=== PATIENT | female | born 1965 | race Caucasian/White ===

== ENCOUNTER 2016-06-23 19:21 | Inpatient (IN) | payer BC, MEDICAID, OTHER ==
[2016-06-23 20:32] LABS: % EOSINOPHILS 1.2 % (0.0-5.0); % LYMPHOCYTES 17.3 % (20.0-50.0); % MONOCYTES 6.4 % (2.0-10.0); % NEUTROPHILS 71.1 % (40.0-80.0); HEMATOCRIT 40.5 % (35.0-45.0); HEMOGLOBIN 13.7 gm/dL (11.7-15.5); MEAN CORPUSCULAR HEMOGLOBIN 29.7 pg (27.0-31.0); MEAN CORPUSCULAR HGB CONC 33.8 pg (28.0-36.0); MEAN PLATELET VOLUME 7.7 fl; NEUTROPHILE ABSOLUTE 11.3 Th/cmm (1.8-8.0); PLATELET COUNT 254 Th/cmm (150-400); RED CELL DISTRIBUTION WIDTH 13.1 % (11.5-20.0)
--- NOTE | 2016-06-23 20:35 | ED Physician Chart ---
Chief Complaint/HPI - Patient Information Date Seen:: 06/23/16 Time Seen:: 19:20 Chief Complaint:: rectal pain History of Present Illness:: 51-year-old female with acute on chronic, worsening, severe, 10 out of 10, aching, worse with bowel movement, left-sided rectal pain that became acutely worse over the past week but has been having symptoms for the past 6 months. Recently was seen by unknown physician who prescribed some unknown compounded cream which she has not tried to cream because is not ready at the compounding pharmacy. 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 Has some associated hematochezia for the past 5 weeks. Allergies:: Allergies Allergy/AdvReac Type Severity Reaction Status Date / Time Penicillins [PCN] Allergy Verified 06/23/16 19:56 Vitals:: Vital Signs - 8 hr 06/23/16 19:25 Temp 99.5 F HR 90 RR 18 BP 125/78 O2 Sat % 98 Historian:: Patient Review:: Nurse's Note Reviewed Review of Systems - Review of Systems Other: Complete system review otherwise unremarkable except as noted in history of present illness. Past Medical History - Past Medical History Past Medical History: HTN, DM, Dyslipidemia Family History: None Social History: Non Smoker, No Alcohol, No Drug Use, Employed Surgical History: None Psychiatricy History: None Medication: Reviewed Family Medical History - Family Member Mother History Unknown: Yes Ethnicity: Physical Exam - Physical Examination Other:: INITIAL VITAL SIGNS: Reviewed by me GENERAL: Alert and interactive. No acute distress HEAD: Head is normocephalic and atraumatic EYES: EOMI. PERRL. No scleral icterus. No conjunctival injection ENT: Moist mucous membranes. NECK: Supple. No masses. Full range of motion RESPIRATORY: No tachypnea. Clear breath sounds bilaterally. No wheezing, rales, or rhonchi CV: Regular rate and rhythm. No murmurs, rubs, or gallops ABDOMEN: Soft, non-distended, non-tender. No guarding. No rebound. No masses. EXTREMITIES: No deformity. No cyanosis. No edema. SKIN: Warm and dry. No obvious rashes. NEUROLOGIC: Alert and oriented. Face is symmetric. Speech is normal. Moves all extremities equally. Motor and sensory distally intact. RECTAL: RN Court Supervisor and Verbal Consent Obtained Sphincter tone is normal. Severe pain to palpation over the left sphincter area. There is an area of induration at about 7:00 which is deep painful. Consistent with rectal abscess and possibly fissure. There is a skin tag at the 6 o'clock position. No evidence of external hemorrhoids. No evidence of internal hemorrhoids. Labs/Radiology/EKG Results - Lab Results Results: Lab Results 06/23/16 06/23/16 Range/Units 20:15 20:15 WBC 15.9 H (4.8-10.8) Th/cmm RBC 4.60 (3.80-5.10) Mil/cmm Hgb 13.7 (11.7-15.5) gm/dL Hct 40.5 (35.0-45.0) % MCV 88.0 (81-100) fl MCH 29.7 (27.0-31.0) pg MCHC Differential 33.8 (28.0-36.0) pg RDW 13.1 (11.5-20.0) % Plt Count 254 (150-400) Th/cmm MPV 7.7 fl Neutrophils % 71.1 (40.0-80.0) % Lymphocytes % 17.3 L (20.0-50.0) % Monocytes % 6.4 (2.0-10.0) % Eosinophils % 1.2 (0.0-5.0) % Basophils % 4.0 H (0.0-2.0) % Sodium 136 (136-145) mEq/L Potassium 4.6 (3.5-5.1) mEq/L Chloride 103 (98-107) mEq/L Carbon Dioxide 29.8 (21.0-31.0) mEq/L Anion Gap 7.8 (7.0-16.0) BUN 13 (7-25) mg/dL Creatinine 0.6 (0.6-1.2) mg/dL Est GFR ( Amer) > 60.0 (>90) ml/min Est GFR (Non-Af Amer) > 60.0 ml/min BUN/Creatinine Ratio 21.7 Glucose 195 H (70-105) mg/dL Calcium 9.3 (8.6-10.3) mg/dL Total Bilirubin 0.3 (0.3-1.0) mg/dL AST 11 L (13-39) U/L ALT 12 (7-52) U/L Alkaline Phosphatase 70 (34-104) U/L Total Protein 7.5 (6.0-8.3) gm/dL Albumin 3.8 (3.7-5.3) gm/dL Globulin 3.7 gm/dL Albumin/Globulin Ratio 1.0 (1.0-1.8) ED Septic Shock - . Is Septic Shock (SBP<90, OR Lactate>4 mmol\L) present?: No - <6hrs of presentation: Vital Signs: Vital Signs - 8 hr 06/23/16 19:25 Temp 99.5 F HR 90 RR 18 BP 125/78 O2 Sat % 98 Reassessment (Disposition) - Reassessment Reassessment:: This patient has a rectal abscess. Concern for deep fissure. This has been worsening over the past 6 months. She has apparently seen a physician who prescribed a compounded cream but she has not been able to last picker the cream yet to try it. It is unknown what this compounded cream contains. He is currently not taking any antibiotics. Over the course of the 6 months she was taking Cipro for some time early on. Symptoms continued to worsen over this time. Patient has leukocytosis. She will likely need I&D and possible further exploration of the fistula to discover how far it has tracked. This is not a procedure that can be done in the emergency department. She did receive IV antibiotics here in the ER. Also IV fluids. Also intramuscular analgesics. Discussed with the admitting physician. Patient admitted for further workup and treatment. Reassessment Condition:: Improved - Diagnosis Diagnosis:: Acute rectal pain due to left-sided perirectal abscess with rectal fissure Diabetes mellitus type 2 Hypertension - Patient Disposition Discharge/Transfer:: Acute Care w/in this hosp Admitted to:: Med/Surg Admitting Medical Physician:: Jose J Avila Time:: 21:17 Condition at Disposition:: Improved
[2016-06-23 20:41] LABS: WHITE BLOOD COUNT 15.9 Th/cmm (4.8-10.8)
[2016-06-23 20:47] LABS: ALKALINE PHOSPHATASE 70 U/L (34-104); ANION GAP 7.8 (7.0-16.0); BILIRUBIN,TOTAL 0.3 mg/dL (0.3-1.0); BUN - UREA NITROGEN 13 mg/dL (7-25); BUN/CREATININE RATIO 21.7; CALCIUM SERUM 9.3 mg/dL (8.6-10.3); CARBON DIOXIDE 29.8 mEq/L (21.0-31.0); CHLORIDE 103 mEq/L (98-107); CREATININE - SERUM 0.6 mg/dL (0.6-1.2); GLUCOSE 195 mg/dL (70-105); POTASSIUM SERUM 4.6 mEq/L (3.5-5.1); SGOT 11 U/L (13-39); SGPT/ALT 12 U/L (7-52); SODIUM SERUM 136 mEq/L (136-145)
[2016-06-23] MEDS ORDERED: Sodium Chloride 0.9% 1,000 ML IV ONE (21:03)
[2016-06-23] MEDS ORDERED: Clindamycin 600mg/50mL 600 MG/50 ML BAG IV ONE (21:04)
[2016-06-23] MEDS ORDERED: Ciprofloxacin 400mg Premix PB 400 MG/200 ML BAG IV ONE ×2 (21:20→21:22)
[2016-06-23] MEDS ORDERED: metroNIDAZOLE 500mg/NS 100mL 500 MG/100 ML BAG IV ONE ×2 (21:20→22:00)
--- NOTE | 2016-06-23 22:23 | Admit Criteria Form ---
Admit Criteria Forms - Admit Criteria Diagnosis: PAIN MANAGEMENT GR Clinical Indications for Admission to Inpatient Care (Place 'X' for any and all applicable criteria): Hospital admission is needed for appropriate care of the patient because of 1 or more of the following are present (1)(2)(3)(4)(5): [X]I. Severe pain requiring acute inpatient management as indicated by 1 or more of the following (2)(5)(10): [X]a) Continuous or frequent (eg, every 2 to 4 hours) parenteral analgesics required [A] [ ]b) Necessity (ie, alternative approaches not effective) for analgesic regimen that can only be performed or initiated in inpatient setting [ ]II. Pain causing debilitation to the point of inability to function or be supported at any other level of care [ ]III. Severe side effects from pain medications as indicated by ANY ONE of the following (12)(13)(14)(15): [ ]a) Uncontrollable seizures [ ]b) Cardiac arrhythmias of immediate concern [ ]c) Dehydration that is severe or persistent [ ]d) Vomiting that is severe or persistent [ ]e) Altered mental status that is severe or persistent [ ]f) Obstipation with inadequate GI function to maintain nutrition The original [employer] content created by [employer] has been revised. The portions of the content which have been revised are identified through the use of italic text or in bold, and [email or web address] has neither reviewed nor approved the modified material. All other unmodified content is copyright [employer]. Please see references footnoted in the original [email or web address] 2016 Admit Criteria Met?: Yes
[2016-06-23] MEDS: INSULIN ASPART, RECOMBINANT 100 UNITS/ML SUBQ SCH (22:47)
[2016-06-23 22:48] LABS: URINE BILIRUBIN NEGATIVE (NEGATIVE); URINE COLOR YELLOW; URINE GLUCOSE (UA) NEGATIVE (NEGATIVE); URINE KETONE NEGATIVE (NEGATIVE)
[2016-06-23 22:49] LABS: URINE BLOOD NEGATIVE (NEGATIVE); URINE PH 6.5; URINE PROTEIN NEGATIVE (NEGATIVE); URINE UROBILINOGEN 0.2 E.U./dL (0.2 - 1.0)
[2016-06-23 23:00] LABS: URINE EPITHELIAL CELLS NONE SEEN /lpf (FEW); URINE RBC NONE SEEN /hpf (0-5); URINE WBC NONE SEEN /hpf (0-5)
[2016-06-23 23:01] LABS: URINE BACTERIA NONE SEEN /hpf (NONE SEEN)
[2016-06-23] MEDS: D5-0.45NS 1,000 ML IV SCH (23:42)
[2016-06-24] MEDS: metroNIDAZOLE 500mg/NS 100mL 500 MG/100 ML BAG IV SCH ×3 (05:46→20:34)
[2016-06-24] MEDS: INSULIN ASPART, RECOMBINANT 100 UNITS/ML SUBQ SCH ×4 (07:03→20:35)
[2016-06-24] MEDS ORDERED: Midazolam 1mg/ml 2 ml vial IV ONE (09:03)
[2016-06-24] MEDS ORDERED: Clindamycin 600mg/50mL 600 MG/50 ML BAG IV ONE (09:12)
--- NOTE | 2016-06-24 09:29 | General Progress Note ---
Subjective - Review of Systems Service Date: 06/24/16 Events since last encounter: operation: sigmoidoscopy, hemorrhoidectomy no fissure or fistula Objective - Results Result Diagrams: 06/23/16 20:15 06/23/16 20:15 Recent Labs: Laboratory Last Values WBC 15.9 Th/cmm (4.8-10.8) H 06/23/16 20:15 RBC 4.60 Mil/cmm (3.80-5.10) 06/23/16 20:15 Hgb 13.7 gm/dL (11.7-15.5) 06/23/16 20:15 Hct 40.5 % (35.0-45.0) 06/23/16 20:15 MCV 88.0 fl (81-100) 06/23/16 20:15 MCH 29.7 pg (27.0-31.0) 06/23/16 20:15 MCHC Differential 33.8 pg (28.0-36.0) 06/23/16 20:15 RDW 13.1 % (11.5-20.0) 06/23/16 20:15 Plt Count 254 Th/cmm (150-400) 06/23/16 20:15 MPV 7.7 fl 06/23/16 20:15 Neutrophils % 71.1 % (40.0-80.0) 06/23/16 20:15 Lymphocytes % 17.3 % (20.0-50.0) L 06/23/16 20:15 Monocytes % 6.4 % (2.0-10.0) 06/23/16 20:15 Eosinophils % 1.2 % (0.0-5.0) 06/23/16 20:15 Basophils % 4.0 % (0.0-2.0) H 06/23/16 20:15 Sodium 136 mEq/L (136-145) 06/23/16 20:15 Potassium 4.6 mEq/L (3.5-5.1) 06/23/16 20:15 Chloride 103 mEq/L (98-107) 06/23/16 20:15 Carbon Dioxide 29.8 mEq/L (21.0-31.0) 06/23/16 20:15 Anion Gap 7.8 (7.0-16.0) 06/23/16 20:15 BUN 13 mg/dL (7-25) 06/23/16 20:15 Creatinine 0.6 mg/dL (0.6-1.2) 06/23/16 20:15 Est GFR ( Amer) > 60.0 ml/min (>90) 06/23/16 20:15 Est GFR (Non-Af Amer) > 60.0 ml/min 06/23/16 20:15 BUN/Creatinine Ratio 21.7 06/23/16 20:15 Glucose 195 mg/dL (70-105) H 06/23/16 20:15 POC Glucose 139 MG/DL (70 - 105) H 06/24/16 06:56 Hemoglobin A1c % 6.3 % (4.0-6.0) H 06/23/16 20:15 Whole Bld Lactic Acid 1.06 mmol/L (0.60-1.99) 06/23/16 21:10 Calcium 9.3 mg/dL (8.6-10.3) 06/23/16 20:15 Total Bilirubin 0.3 mg/dL (0.3-1.0) 06/23/16 20:15 AST 11 U/L (13-39) L 06/23/16 20:15 ALT 12 U/L (7-52) 06/23/16 20:15 Alkaline Phosphatase 70 U/L (34-104) 06/23/16 20:15 Total Protein 7.5 gm/dL (6.0-8.3) 06/23/16 20:15 Albumin 3.8 gm/dL (3.7-5.3) 06/23/16 20:15 Globulin 3.7 gm/dL 06/23/16 20:15 Albumin/Globulin Ratio 1.0 (1.0-1.8) 06/23/16 20:15 Urine Source CLEAN CATCH 06/23/16 19:45 Urine Color YELLOW 06/23/16 19:45 Urine Clarity CLEAR (CLEAR) 06/23/16 19:45 Urine pH 6.5 06/23/16 19:45 Ur Specific [place] 1.020 (1.005-1.030) 06/23/16 19:45 Urine Protein NEGATIVE mg/dL (NEGATIVE) 06/23/16 19:45 Urine Glucose (UA) NEGATIVE mg/dL (NEGATIVE) 06/23/16 19:45 Urine Ketones NEGATIVE mg/dL (NEGATIVE) 06/23/16 19:45 Urine Blood NEGATIVE (NEGATIVE) 06/23/16 19:45 Urine Nitrate NEGATIVE (NEGATIVE) 06/23/16 19:45 Urine Bilirubin NEGATIVE (NEGATIVE) 06/23/16 19:45 Urine Urobilinogen 0.2 E.U./dL (0.2 - 1.0) 06/23/16 19:45 Ur Leukocyte Esterase NEGATIVE (NEGATIVE) 06/23/16 19:45 Urine RBC NONE SEEN /hpf (0-5) 06/23/16 19:45 Urine WBC NONE SEEN /hpf (0-5) 06/23/16 19:45 Ur Epithelial Cells NONE SEEN /lpf (FEW) 06/23/16 19:45 Urine Bacteria NONE SEEN /hpf (NONE SEEN) 06/23/16 19:45 Urine Test NEGATIVE 06/23/16 19:45 - Physical Exam Vitals and I&O: Vital Signs Temp 97.9 F 06/24/16 04:00 Pulse 84 06/24/16 08:51 Resp 18 06/24/16 04:00 BP 126/67 06/24/16 08:51 Pulse Ox 97 06/24/16 04:00 Active Medications: Current Medications Atenolol (Tenormin) 50 mg PO DAILY [facility] Stop: 08/23/16 08:59 Last Admin: 06/24/16 08:51 Dose: Not Given Dextrose/Sodium Chloride (D5-0.45ns) 1,000 mls @ 80 mls/hr IV .[id number] [facility] Stop: 08/22/16 21:59 Last Admin: 06/23/16 23:42 Dose: 80 mls/hr Levofloxacin (Levaquin Pb) 500 mg in 100 mls @ 100 mls/hr IV Q24HR [facility] Stop: 08/23/16 21:59 Metronidazole (Flagyl) 500 mg in 100 mls @ 100 mls/hr IV Q8HR [facility] Stop: 08/23/16 04:59 Last Admin: 06/24/16 05:46 Dose: 100 mls/hr Insulin Aspart (Novolog) 0 units SUBQ ACHS [facility] PRN Reason: Protocol Stop: 08/22/16 22:29 Last Admin: 06/24/16 07:03 Dose: Not Given Lisinopril (Zestril) 20 mg PO BID [facility] Stop: 08/23/16 08:59 Last Admin: 06/24/16 08:51 Dose: Not Given Morphine Sulfate (Morphine) 3 mg IVP Q3H PRN PRN Reason: Pain (Moderate) Stop: 08/22/16 22:14 Ondansetron HCl (Zofran) 4 mg IV Q6H PRN PRN Reason: Nausea / Vomiting Stop: 08/22/16 22:14 Simvastatin (Zocor) 10 mg PO [facility] Stop: 08/23/16 20:59 - Procedures Procedures: Procedures Procedure Code Date DESTRUC-SHOULDER LES NEC 80.81 11/08/01 EXC SHOULDER EDGARDO DEEP < 5 CM 07483 11/08/01
--- NOTE | 2016-06-24 12:00 | Consultation ---
DATE OF CONSULTATION: 06/24/2016 REFERRING PHYSICIAN: Dr. Avila. REASON FOR CONSULTATION: Rectal pain and bleeding. Thank you for referring this patient to me. HISTORY OF PRESENT ILLNESS: A 51-year-old obese diabetic female who comes in because of severe pain in the perirectal region. The patient claims she has been having some rectal bleeding continues for the past 1 week and on and off for the last one month. She claims however, that she has had pain in the anal region for the last 6 months on and off. PAST MEDICAL HISTORY: She had ovarian cyst removal. No other surgery. She is diabetic and takes oral medications. She is hypotensive. She is obese and weighs about 240 pounds. ALLERGIES TO MEDICATION: PENICILLIN. LABORATORY STUDIES: Showed WBC at 15,900. Chemistry, blood sugar was 195 and hemoglobin A1c 6.3. PHYSICAL EXAMINATION: GENERAL: The patient speaks Filipino and is alert and oriented. She is obese. ANAL EXAMINATION: Shows external hemorrhage, but is extremely tender and could not be examined. IMPRESSION: 1. Possible fissure. 2. External hemorrhoids, minimal. 3. Possible internal hemorrhoids. PLAN: We will examine under anesthesia, do sigmoidoscopy. Fissurectomy might be indicated. Hemorrhoidectomy is justifiable. Informed consent discussed with the patient regarding the possible complications and direct result of the procedure including pain for viable period of time, bleeding that might persist for a while and sphincterotome abnormality. The patient claims she understands these possible side effects and may have to undergo future treatments for the same condition. JOB# [id number]
[2016-06-24] MEDS: Morphine Sulfate 4 mg/mL 1mL Syr IVP PRN ×2 (13:51→20:06)
--- NOTE | 2016-06-24 14:16 | Infectious Disease Prog Note ---
Infectious Disease Subjective - Review of Systems Service Date: 06/24/16 Subjective: 800606 Infectious Disease Objective - Results Result Diagrams: 06/23/16 20:15 06/23/16 20:15 Recent Labs: Laboratory Last Values WBC 15.9 Th/cmm (4.8-10.8) H 06/23/16 20:15 RBC 4.60 Mil/cmm (3.80-5.10) 06/23/16 20:15 Hgb 13.7 gm/dL (11.7-15.5) 06/23/16 20:15 Hct 40.5 % (35.0-45.0) 06/23/16 20:15 MCV 88.0 fl (81-100) 06/23/16 20:15 MCH 29.7 pg (27.0-31.0) 06/23/16 20:15 MCHC Differential 33.8 pg (28.0-36.0) 06/23/16 20:15 RDW 13.1 % (11.5-20.0) 06/23/16 20:15 Plt Count 254 Th/cmm (150-400) 06/23/16 20:15 MPV 7.7 fl 06/23/16 20:15 Neutrophils % 71.1 % (40.0-80.0) 06/23/16 20:15 Lymphocytes % 17.3 % (20.0-50.0) L 06/23/16 20:15 Monocytes % 6.4 % (2.0-10.0) 06/23/16 20:15 Eosinophils % 1.2 % (0.0-5.0) 06/23/16 20:15 Basophils % 4.0 % (0.0-2.0) H 06/23/16 20:15 Sodium 136 mEq/L (136-145) 06/23/16 20:15 Potassium 4.6 mEq/L (3.5-5.1) 06/23/16 20:15 Chloride 103 mEq/L (98-107) 06/23/16 20:15 Carbon Dioxide 29.8 mEq/L (21.0-31.0) 06/23/16 20:15 Anion Gap 7.8 (7.0-16.0) 06/23/16 20:15 BUN 13 mg/dL (7-25) 06/23/16 20:15 Creatinine 0.6 mg/dL (0.6-1.2) 06/23/16 20:15 Est GFR ( Amer) > 60.0 ml/min (>90) 06/23/16 20:15 Est GFR (Non-Af Amer) > 60.0 ml/min 06/23/16 20:15 BUN/Creatinine Ratio 21.7 06/23/16 20:15 Glucose 195 mg/dL (70-105) H 06/23/16 20:15 POC Glucose 153 MG/DL (70 - 105) H 06/24/16 11:43 Hemoglobin A1c % 6.3 % (4.0-6.0) H 06/23/16 20:15 Whole Bld Lactic Acid 1.06 mmol/L (0.60-1.99) 06/23/16 21:10 Calcium 9.3 mg/dL (8.6-10.3) 06/23/16 20:15 Total Bilirubin 0.3 mg/dL (0.3-1.0) 06/23/16 20:15 AST 11 U/L (13-39) L 06/23/16 20:15 ALT 12 U/L (7-52) 06/23/16 20:15 Alkaline Phosphatase 70 U/L (34-104) 06/23/16 20:15 Total Protein 7.5 gm/dL (6.0-8.3) 06/23/16 20:15 Albumin 3.8 gm/dL (3.7-5.3) 06/23/16 20:15 Globulin 3.7 gm/dL 06/23/16 20:15 Albumin/Globulin Ratio 1.0 (1.0-1.8) 06/23/16 20:15 Urine Source CLEAN CATCH 06/23/16 19:45 Urine Color YELLOW 06/23/16 19:45 Urine Clarity CLEAR (CLEAR) 06/23/16 19:45 Urine pH 6.5 06/23/16 19:45 Ur Specific Stuart 1.020 (1.005-1.030) 06/23/16 19:45 Urine Protein NEGATIVE mg/dL (NEGATIVE) 06/23/16 19:45 Urine Glucose (UA) NEGATIVE mg/dL (NEGATIVE) 06/23/16 19:45 Urine Ketones NEGATIVE mg/dL (NEGATIVE) 06/23/16 19:45 Urine Blood NEGATIVE (NEGATIVE) 06/23/16 19:45 Urine Nitrate NEGATIVE (NEGATIVE) 06/23/16 19:45 Urine Bilirubin NEGATIVE (NEGATIVE) 06/23/16 19:45 Urine Urobilinogen 0.2 E.U./dL (0.2 - 1.0) 06/23/16 19:45 Ur Leukocyte Esterase NEGATIVE (NEGATIVE) 06/23/16 19:45 Urine RBC NONE SEEN /hpf (0-5) 06/23/16 19:45 Urine WBC NONE SEEN /hpf (0-5) 06/23/16 19:45 Ur Epithelial Cells NONE SEEN /lpf (FEW) 06/23/16 19:45 Urine Bacteria NONE SEEN /hpf (NONE SEEN) 06/23/16 19:45 Urine Test NEGATIVE 06/23/16 19:45 - Physical Exam Vitals and I&O: Vital Signs Temp 98.1 F 06/24/16 08:00 Pulse 84 06/24/16 08:51 Resp 18 06/24/16 08:00 BP 126/67 06/24/16 08:51 Pulse Ox 97 06/24/16 08:00 Intake & Output 06/23/16 06/24/16 06/24/16 18:59 06:59 18:59 Intake Total 100 Balance 100 Intake: Intake, IV Amount 100 metroNIDAZOLE 500mg/NS 100 100mL 500 mg In 100 ml @ 100 mls/hr IV Q8HR [facility] Rx #:[id number] Active Medications: Current Medications Atenolol (Tenormin) 50 mg PO DAILY [facility] Stop: 08/23/16 08:59 Last Admin: 06/24/16 08:51 Dose: Not Given Dextrose/Sodium Chloride (D5-0.45ns) 1,000 mls @ 80 mls/hr IV .[id number] [facility] Stop: 08/22/16 21:59 Last Admin: 06/23/16 23:42 Dose: 80 mls/hr Levofloxacin (Levaquin Pb) 500 mg in 100 mls @ 100 mls/hr IV Q24HR [facility] Stop: 08/23/16 21:59 Metronidazole (Flagyl) 500 mg in 100 mls @ 100 mls/hr IV Q8HR [facility] Stop: 08/23/16 04:59 Last Admin: 06/24/16 13:51 Dose: 100 mls/hr Insulin Aspart (Novolog) 0 units SUBQ ACHS [facility] PRN Reason: Protocol Stop: 08/22/16 22:29 Last Admin: 06/24/16 13:42 Dose: Not Given Lisinopril (Zestril) 20 mg PO BID [facility] Stop: 08/23/16 08:59 Last Admin: 06/24/16 08:51 Dose: Not Given Morphine Sulfate (Morphine) 3 mg IVP Q3H PRN PRN Reason: Pain (Moderate) Stop: 08/22/16 22:14 Last Admin: 06/24/16 13:51 Dose: 3 mg Ondansetron HCl (Zofran) 4 mg IV Q6H PRN PRN Reason: Nausea / Vomiting Stop: 08/22/16 22:14 Simvastatin (Zocor) 10 mg PO HS [facility] Stop: 08/23/16 20:59 - Procedures Procedures: Procedures Procedure Code Date DESTRUC-SHOULDER LES NEC 80.81 11/08/01 EXC SHOULDER EDGARDO DEEP < 5 CM [id number] 11/08/01
--- NOTE | 2016-06-24 15:17 | Operative Report ---
DATE OF SURGERY: 06/24/2016 PREOPERATIVE DIAGNOSES: 1. Rectal bleeding and pain. 2. Obesity. 3. Diabetes mellitus. 4. Hypertension. POSTOPERATIVE DIAGNOSES: 1. Rectal bleeding and pain. 2. Obesity. 3. Diabetes mellitus. 4. Hypertension. 5. External hemorrhoids. OPERATION DONE: 1. Sigmoidoscopy. 2. External hemorrhoidectomy. SURGEON: Sherrill Geronimo M.D. ANESTHESIA: Spinal. ANESTHESIOLOGIST: Tammy Dior M.D. ESTIMATED BLOOD LOSS: None. OPERATIVE FINDINGS: The patient has poor prep for the sigmoidoscopy, but no internal hemorrhoids were noted. No anal fissure was noted. No anorectal fistula. There was a prominent external hemorrhoid at 7 o'clock location, which was removed. DESCRIPTION OF PROCEDURE: The patient was given spinal anesthesia and was placed in the dorsal lithotomy position. Diagnostic laparoscopy was done, but the patient had not been prepared for this and therefore had stools in the rectum. However, following removal of stool, no internal hemorrhoids were noted. No mass was noted within 10 cm of the scope introduction. The sphincters were dilated. No fissure was noted. No fistula was noted. There was a prominent external hemorrhoid at the 7 o'clock location and this was excised. The skin was approximated utilizing running suture of 3-0 chromic catgut. Then, 0.5% Marcaine was infiltrated into the excision site. The patient tolerated the procedure well. JOB# [id number]
[2016-06-24] MEDS: D5-0.45NS 1,000 ML IV SCH (17:58)
--- NOTE | 2016-06-24 19:28 | History & Physical ---
ADMIT DATE: 06/24/2016 CHIEF COMPLAINT: Rectal area pain. HISTORY OF PRESENT ILLNESS: This is a 51-year-old female with history of diabetes, hypertension, and obesity who was brought in to Emergency Room to see the rectal area pain for the past few days. The patient was evaluated in the Emergency Room, diagnosed with possible perirectal abscess, has been admitted to the hospital for treatment. This morning, the patient was evaluated by Surgery. The patient underwent a sigmoidoscopy and external hemorrhoidectomy. Surgical consultation an operative report reviewed. The patient says she is feeling better. By history, the patient says she has been having this rectal pain problem for the past few months off and on and also rectal bleeding. The patient says that she went to see colorectal surgeon and was told that she might have fissure, but the patient has not had any surgical interventions in the past few months. She denies any fever, no chills, no nausea, no vomiting, no abdominal pain, no chest pain, no shortness of breath, no dizziness, no palpitation complaints. Family was at the bedside. PAST MEDICAL HISTORY: Hypertension and diabetes. PAST SURGICAL HISTORY: No significant past surgical history reported. SOCIAL HISTORY: Lives at home. Denies any alcohol or tobacco. CURRENT MEDICATIONS: Currently on Tylenol, atenolol, Levaquin, Flagyl, Zestril, morphine, Zofran, and simvastatin. ALLERGIES: ALLERGIC TO PENICILLIN. REVIEW OF SYSTEMS: As per HPI. Twelve-point systems appear negative. PHYSICAL EXAMINATION: VITAL SIGNS: Temperature 98.5, pulse 80, respiration 18, and blood pressure 135/48. HEART: S1 and S2 normal. LUNGS: Clear to auscultation bilaterally. ABDOMEN: Soft and nontender. NEUROLOGIC: The patient is alert, awake, moves all extremities, no focal deficits noted. SKIN: Perirectal wound clean. ASSESSMENT: 1. Perirectal pain, better. 2. External hemorrhoids status post hemorrhoidectomy. 3. Hypertension. 4. Hyperlipidemia. 5. Diabetes. 6. Obesity. PLAN: The case was discussed with General Surgery. No evidence of any fissure or fistula or any abscess per General Surgery operative report. The case was discussed with ID. Continue on antibiotics at this point. Local wound care will be given. Monitor blood sugars and monitor vitals. Adequate pain control will be given. Discussed with the patient and family at bedside regarding the patient's condition and plan of care. [facility]# [id number]
[2016-06-24] MEDS ORDERED: Levofloxacin 500mg/100mL 500 MG/100 ML BAG IV SCH (22:00)
[2016-06-25] MEDS: Morphine Sulfate 4 mg/mL 1mL Syr IVP PRN ×4 (00:02→16:26)
[2016-06-25] MEDS: metroNIDAZOLE 500mg/NS 100mL 500 MG/100 ML BAG IV SCH ×2 (05:09→13:21)
[2016-06-25 05:46] LABS: % BASOPHILS 2.4 % (0.0-2.0); % EOSINOPHILS 0.7 % (0.0-5.0); % LYMPHOCYTES 11.6 % (20.0-50.0); % MONOCYTES 6.4 % (2.0-10.0); % NEUTROPHILS 78.9 % (40.0-80.0); HEMATOCRIT 37.4 % (35.0-45.0); HEMOGLOBIN 12.5 gm/dL (11.7-15.5); MEAN CELL VOLUME 87.8 fl (81-100); MEAN CORPUSCULAR HEMOGLOBIN 29.4 pg (27.0-31.0); MEAN CORPUSCULAR HGB CONC 33.5 pg (28.0-36.0); MEAN PLATELET VOLUME 7.8 fl; NEUTROPHILE ABSOLUTE 11.9 Th/cmm (1.8-8.0); PLATELET COUNT 220 Th/cmm (150-400); RED BLOOD COUNT 4.25 Mil/cmm (3.80-5.10); RED CELL DISTRIBUTION WIDTH 12.8 % (11.5-20.0)
[2016-06-25 05:53] LABS: WHITE BLOOD COUNT 15.2 Th/cmm (4.8-10.8)
--- NOTE | 2016-06-25 05:53 | Consultation ---
DATE OF CONSULTATION: 06/24/2016 INFECTIOUS DISEASE CONSULTATION REASON FOR CONSULTATION: Rectal fistula and perirectal abscess. HISTORY OF PRESENT ILLNESS: This is a 51-year-old female with past medical history of diabetes mellitus, hypertension, and dyslipidemia, who was following her primary care physician for her constipation and rectal pain during defecation. She was followed by colorectal surgeon and was told that she has developed fistula and probably abscess. So, she came to the ER for further evaluation and management. On initial evaluation, the patient's temperature was 99.5 degrees Fahrenheit and WBC count was 15,900. ID consult was called for further antibiotic management. Meanwhile, the patient is already started on Levaquin and Flagyl. PAST MEDICAL HISTORY: Includes diabetes mellitus, hypertension, and dyslipidemia. ALLERGIES: THE PATIENT IS ALLERGIC TO PENICILLIN. MEDICATIONS: As per medication reconciliation sheet. Antibiotic nixon, the patient is on Levaquin and Flagyl. SOCIAL HISTORY: Lives at home. Denies any smoking, alcohol, or drug use. PAST SURGICAL HISTORY: Nonsignificant. PSYCHIATRIC HISTORY: None. FAMILY HISTORY: Nonsignificant. REVIEW OF SYSTEMS: GENERAL: The patient has no fever, no chills. HEENT: No diplopia, no photophobia, and no sore throat. RESPIRATORY: No cough and no shortness of breath. CVS: No chest pain and no palpitation. No leg swelling. GASTROINTESTINAL: The patient has no nausea, no vomiting, no diarrhea, and no constipation. The patient has bleeding per rectum, mild. GENITOURINARY: The patient also has tenesmus, pain on defecation. CENTRAL NERVOUS SYSTEM: No headache. No dizziness. No focal weakness. PHYSICAL EXAMINATION: VITAL SIGNS: Shows temperature is 98.1, pulse 84, respirations 17, and blood pressure 126/67. GENERAL: The patient is comfortable lying in the bed, not in acute distress. HEENT: Head is normocephalic and atraumatic. Oral cavity moist, pink tongue. Eyes: No pallor, no icterus. PERRLA. EOMI. NECK: Supple, no JVD, and no carotid bruit. Trachea in midline. CHEST: Bilateral breath sounds. No crackles or wheezing. CARDIOVASCULAR: S1 and S2 within normal limit. Regular rhythm. No murmur and no gallop. ABDOMEN: Soft, nontender, and nondistended. Bowel sounds are present. EXTREMITIES: No cyanosis, no clubbing, and no edema. NEUROLOGIC: Alert, awake, and oriented x 3. LABORATORY DATA: Current lab shows WBC count is 15,900, hemoglobin 13.7, hematocrit 40.5, and platelets are 254,000, neutrophils 71%. Sodium is 136, potassium 4.6, chloride 103, bicarbonate is 29.8, BUN is 13, creatinine 0.6, and glucose is 195. Urinalysis shows negative nitrite and negative leukoesterase. IMPRESSION: 1. 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 2. Diabetes mellitus type 2. 3. Hypertension. 4. Hyperlipidemia. 5. Leukocytosis. RECOMMENDATIONS: Continue Levaquin and Flagyl for 2 weeks. Follow up with colorectal surgeon and primary care physician for further care. Thank you, Dr. Avila, for involving me in taking care of this patient. JOB# [id number]
[2016-06-25 06:04] LABS: ANION GAP 7.9 (7.0-16.0); BUN - UREA NITROGEN 5 mg/dL (7-25); CALCIUM SERUM 8.8 mg/dL (8.6-10.3); CARBON DIOXIDE 27.1 mEq/L (21.0-31.0); CHLORIDE 108 mEq/L (98-107); CREATININE - SERUM 0.5 mg/dL (0.6-1.2); GLUCOSE 176 mg/dL (70-105); SODIUM SERUM 139 mEq/L (136-145)
[2016-06-25] MEDS: INSULIN ASPART, RECOMBINANT 100 UNITS/ML SUBQ SCH ×3 (06:38→17:07)
[2016-06-25] MEDS ORDERED: HYDROmorphone 2 mg/mL 1mL Vial IVP PRN (07:51)
--- NOTE | 2016-06-25 10:25 | Pathology Report ---
[id number] Collection date: 06/24/2016 Surgeon: Dr. Robert Mccartney Specimen Description: External hemorrhoids Gross Description: Received in formalin is a 1.2 x 1.0 x 0.8 cm portion of nunez-chong wrinkled skin. Sectioning shows no focal lesions. Truckload Checker sections are submitted in one cassette. Microscopic Description: The histologic sections show skin / anal mucosa with dilated blood vessels identified consistent with hemorrhoids. Diagnosis: Dilated blood vessels consistent with external hemorrhoids. [facility]# [id number] [facility]
--- NOTE | 2016-06-25 12:15 | General Progress Note ---
Subjective - Review of Systems Service Date: 06/25/16 Events since last encounter: only procedure done was sigmoidoscopy and excision of small skin tag patient should be prescribed Nupercainal oint/suppository for a week to minimize pain hot sitz bath will be helpful Objective - Results Result Diagrams: 06/25/16 05:26 06/25/16 05:26 Recent Labs: Laboratory Last Values WBC 15.2 Th/cmm (4.8-10.8) H 06/25/16 05:26 RBC 4.25 Mil/cmm (3.80-5.10) 06/25/16 05:26 Hgb 12.5 gm/dL (11.7-15.5) 06/25/16 05:26 Hct 37.4 % (35.0-45.0) 06/25/16 05:26 MCV 87.8 fl (81-100) 06/25/16 05:26 MCH 29.4 pg (27.0-31.0) 06/25/16 05:26 MCHC Differential 33.5 pg (28.0-36.0) 06/25/16 05:26 RDW 12.8 % (11.5-20.0) 06/25/16 05:26 Plt Count 220 Th/cmm (150-400) 06/25/16 05:26 MPV 7.8 fl 06/25/16 05:26 Neutrophils % 78.9 % (40.0-80.0) 06/25/16 05:26 Lymphocytes % 11.6 % (20.0-50.0) L 06/25/16 05:26 Monocytes % 6.4 % (2.0-10.0) 06/25/16 05:26 Eosinophils % 0.7 % (0.0-5.0) 06/25/16 05:26 Basophils % 2.4 % (0.0-2.0) H 06/25/16 05:26 Sodium 139 mEq/L (136-145) 06/25/16 05:26 Potassium 4.0 mEq/L (3.5-5.1) 06/25/16 05:26 Chloride 108 mEq/L (98-107) H 06/25/16 05:26 Carbon Dioxide 27.1 mEq/L (21.0-31.0) 06/25/16 05:26 Anion Gap 7.9 (7.0-16.0) 06/25/16 05:26 BUN 5 mg/dL (7-25) L 06/25/16 05:26 Creatinine 0.5 mg/dL (0.6-1.2) L 06/25/16 05:26 Est GFR ( Amer) > 60.0 ml/min (>90) 06/25/16 05:26 Est GFR (Non-Af Amer) > 60.0 ml/min 06/25/16 05:26 BUN/Creatinine Ratio 10.0 06/25/16 05:26 Glucose 176 mg/dL (70-105) H 06/25/16 05:26 POC Glucose 146 MG/DL (70 - 105) H 06/25/16 11:30 Hemoglobin A1c % 6.3 % (4.0-6.0) H 06/23/16 20:15 Whole Bld Lactic Acid 1.06 mmol/L (0.60-1.99) 06/23/16 21:10 Calcium 8.8 mg/dL (8.6-10.3) 06/25/16 05:26 Total Bilirubin 0.3 mg/dL (0.3-1.0) 06/23/16 20:15 AST 11 U/L (13-39) L 06/23/16 20:15 ALT 12 U/L (7-52) 06/23/16 20:15 Alkaline Phosphatase 70 U/L (34-104) 06/23/16 20:15 Total Protein 7.5 gm/dL (6.0-8.3) 06/23/16 20:15 Albumin 3.8 gm/dL (3.7-5.3) 06/23/16 20:15 Globulin 3.7 gm/dL 06/23/16 20:15 Albumin/Globulin Ratio 1.0 (1.0-1.8) 06/23/16 20:15 Urine Source CLEAN CATCH 06/23/16 19:45 Urine Color YELLOW 06/23/16 19:45 Urine Clarity CLEAR (CLEAR) 06/23/16 19:45 Urine pH 6.5 06/23/16 19:45 Ur Specific [place] 1.020 (1.005-1.030) 06/23/16 19:45 Urine Protein NEGATIVE mg/dL (NEGATIVE) 06/23/16 19:45 Urine Glucose (UA) NEGATIVE mg/dL (NEGATIVE) 06/23/16 19:45 Urine Ketones NEGATIVE mg/dL (NEGATIVE) 06/23/16 19:45 Urine Blood NEGATIVE (NEGATIVE) 06/23/16 19:45 Urine Nitrate NEGATIVE (NEGATIVE) 06/23/16 19:45 Urine Bilirubin NEGATIVE (NEGATIVE) 06/23/16 19:45 Urine Urobilinogen 0.2 E.U./dL (0.2 - 1.0) 06/23/16 19:45 Ur Leukocyte Esterase NEGATIVE (NEGATIVE) 06/23/16 19:45 Urine RBC NONE SEEN /hpf (0-5) 06/23/16 19:45 Urine WBC NONE SEEN /hpf (0-5) 06/23/16 19:45 Ur Epithelial Cells NONE SEEN /lpf (FEW) 06/23/16 19:45 Urine Bacteria NONE SEEN /hpf (NONE SEEN) 06/23/16 19:45 Urine Test NEGATIVE 06/23/16 19:45 - Physical Exam Vitals and I&O: Vital Signs Temp 96.8 F 06/25/16 08:00 Pulse 73 06/25/16 08:20 Resp 18 06/25/16 08:00 BP 130/70 06/25/16 08:20 Pulse Ox 99 06/25/16 08:00 Intake & Output 06/24/16 06/25/16 06/25/16 18:59 06:59 18:59 Intake Total 1982.333 680 Balance 1982.333 680 Intake: Intake, IV Amount 1133.333 200 D5-0.45NS 1,000 ml @ 80 1033.333 mls/hr IV .[id number] [facility] Rx #:[id number] Levofloxacin 500mg/100mL 100 500 mg In 100 ml @ 100 mls/hr IV Q24HR [facility] Rx#: [id number] metroNIDAZOLE 500mg/NS 100 100 100mL 500 mg In 100 ml @ 100 mls/hr IV Q8HR [facility] Rx #:[id number] Oral 850 480 Other: # Voids 3 4 # Bowel Movements 0 Active Medications: Current Medications Acetaminophen (Tylenol) 650 mg PO Q4HR PRN PRN Reason: Fever > 101 Stop: 08/23/16 14:07 Last Admin: 06/25/16 11:26 Dose: 650 mg Atenolol (Tenormin) 50 mg PO DAILY [facility] Stop: 08/23/16 08:59 Last Admin: 06/25/16 08:20 Dose: 50 mg Hydromorphone HCl (Dilaudid) 2 mg IVP Q4HR PRN PRN Reason: Severe Pain Stop: 08/24/16 07:50 Last Admin: 06/25/16 08:20 Dose: 2 mg Dextrose/Sodium Chloride (D5-0.45ns) 1,000 mls @ 80 mls/hr IV .[id number] [facility] Stop: 08/22/16 21:59 Last Infusion: 06/24/16 18:23 Dose: 80 mls/hr Levofloxacin (Levaquin Pb) 500 mg in 100 mls @ 100 mls/hr IV Q24HR [facility] Stop: 08/23/16 21:59 Last Infusion: 06/24/16 22:43 Dose: Infused Metronidazole (Flagyl) 500 mg in 100 mls @ 100 mls/hr IV Q8HR [facility] Stop: 08/23/16 04:59 Last Admin: 06/25/16 05:09 Dose: 100 mls/hr Insulin Aspart (Novolog) 0 units SUBQ ACHS [facility] PRN Reason: Protocol Stop: 08/22/16 22:29 Last Admin: 06/25/16 11:31 Dose: Not Given Lisinopril (Zestril) 20 mg PO BID [facility] Stop: 08/23/16 08:59 Last Admin: 06/25/16 08:20 Dose: 20 mg Morphine Sulfate (Morphine) 3 mg IVP Q3H PRN PRN Reason: Pain (Moderate) Stop: 08/22/16 22:14 Last Admin: 06/25/16 06:06 Dose: 3 mg Ondansetron HCl (Zofran) 4 mg IV Q6H PRN PRN Reason: Nausea / Vomiting Stop: 08/22/16 22:14 Simvastatin (Zocor) 10 mg PO HS [facility] Stop: 08/23/16 20:59 Last Admin: 06/24/16 20:35 Dose: 10 mg - Procedures Procedures: Procedures Procedure Code Date DESTRUC-SHOULDER LES NEC 80.81 11/08/01 EXC SHOULDER EDGARDO DEEP < 5 CM [address]17 11/08/01 Nutritional Asmnt/Malnutr-PDOC - Dietary Evaluation Malnutrition Findings (Please click <Entered> for more info): Nutritional Asmnt/Malnutrition Start: 06/24/16 14: 54 Text: Status: Complete Freq: Document 06/24/16 14:54 GSUN (Rec: 06/24/16 15:17 [email or web address] [email or web address]) Nutritional Asmnt/Malnutrition Patient General Information Nutritional Screening High Risk Screening Diagnosis Reason for visit: kim-rectal abscess Pertinent Medical Hx/Surgical Hx ER: DM, HTN Subjective Information 51 year old female from home, ractal pain and bloody stool. 4 AM operation: hemorrhoidectomy, sigmoidoscopy, no fissure or fistula. Per RN notes, diet advancement as tolerated. Observed clear liquid tray in front of pt. Pt was awake with family at bedside. RD mentioned blood sugar being high, pt appeared confused, will provide DM edu during follow up. Denied recnet weight changes. Current Diet Order/ Nutrition Support Clear liquid Pertinent Medications D5, Morphine, Zofran Pertinent Labs 06/23: A1c 6.3H, glucose 195H Nutritional Hx/Data Height 1.6 m Height (Calculated Centimeters) 160.0 Current Weight (lbs) 99.79 kg Weight (Calculated Kilograms) 99.8 Weight (Calculated Grams) 54447.3 Usual body Weight (lbs) 227 [place] Body Weight 115 GI Symptoms Food Allergies No Skin Integrity/Comment: Aaron 20. Operation around kim-rectal area, otherwise skin intact. Estimated Nutritional Goals BEE in Kcals: Adj wt of IBW Calories/Kcals/Kg AdjBW 141lb/64.2kg Kcals Calculated 1605-1926kcal (25-30kcal/kg) Protein: Adj wt of IBW Protein Calculated 51-64g (0.8-1g/kg) Fluid: ml 1605-1926ml (1ml/kcal) Nutritional Problem 1. Problem Problem Altered nutrition related laboratory values related to Etiology DM aeb Signs/Symptoms: A1c 6.3, glucose 195 on adm Intervention/Recommendation Comments 1. Diet advancement per MD as pt tolerates. Discussed advancement options with pt. 2. Recomend [id number] to promote glycemic control. 3. Provide DM edu during follow up. Expected Outcomes/Goals Expected Outcomes/Goals 1. PO intake to meet at least 75% of estimated nutritional needs.
--- NOTE | 2016-06-25 12:50 | Infectious Disease Prog Note ---
Infectious Disease Subjective - Review of Systems Service Date: 06/25/16 Subjective: no new change. Infectious Disease Objective - Results Result Diagrams: 06/25/16 05:26 06/25/16 05:26 Recent Labs: Laboratory Last Values WBC 15.2 Th/cmm (4.8-10.8) H 06/25/16 05:26 RBC 4.25 Mil/cmm (3.80-5.10) 06/25/16 05:26 Hgb 12.5 gm/dL (11.7-15.5) 06/25/16 05:26 Hct 37.4 % (35.0-45.0) 06/25/16 05:26 MCV 87.8 fl (81-100) 06/25/16 05:26 MCH 29.4 pg (27.0-31.0) 06/25/16 05:26 MCHC Differential 33.5 pg (28.0-36.0) 06/25/16 05:26 RDW 12.8 % (11.5-20.0) 06/25/16 05:26 Plt Count 220 Th/cmm (150-400) 06/25/16 05:26 MPV 7.8 fl 06/25/16 05:26 Neutrophils % 78.9 % (40.0-80.0) 06/25/16 05:26 Lymphocytes % 11.6 % (20.0-50.0) L 06/25/16 05:26 Monocytes % 6.4 % (2.0-10.0) 06/25/16 05:26 Eosinophils % 0.7 % (0.0-5.0) 06/25/16 05:26 Basophils % 2.4 % (0.0-2.0) H 06/25/16 05:26 Sodium 139 mEq/L (136-145) 06/25/16 05:26 Potassium 4.0 mEq/L (3.5-5.1) 06/25/16 05:26 Chloride 108 mEq/L (98-107) H 06/25/16 05:26 Carbon Dioxide 27.1 mEq/L (21.0-31.0) 06/25/16 05:26 Anion Gap 7.9 (7.0-16.0) 06/25/16 05:26 BUN 5 mg/dL (7-25) L 06/25/16 05:26 Creatinine 0.5 mg/dL (0.6-1.2) L 06/25/16 05:26 Est GFR ( Amer) > 60.0 ml/min (>90) 06/25/16 05:26 Est GFR (Non-Af Amer) > 60.0 ml/min 06/25/16 05:26 BUN/Creatinine Ratio 10.0 06/25/16 05:26 Glucose 176 mg/dL (70-105) H 06/25/16 05:26 POC Glucose 146 MG/DL (70 - 105) H 06/25/16 11:30 Hemoglobin A1c % 6.3 % (4.0-6.0) H 06/23/16 20:15 Whole Bld Lactic Acid 1.06 mmol/L (0.60-1.99) 06/23/16 21:10 Calcium 8.8 mg/dL (8.6-10.3) 06/25/16 05:26 Total Bilirubin 0.3 mg/dL (0.3-1.0) 06/23/16 20:15 AST 11 U/L (13-39) L 06/23/16 20:15 ALT 12 U/L (7-52) 06/23/16 20:15 Alkaline Phosphatase 70 U/L (34-104) 06/23/16 20:15 Total Protein 7.5 gm/dL (6.0-8.3) 06/23/16 20:15 Albumin 3.8 gm/dL (3.7-5.3) 06/23/16 20:15 Globulin 3.7 gm/dL 06/23/16 20:15 Albumin/Globulin Ratio 1.0 (1.0-1.8) 06/23/16 20:15 Urine Source CLEAN CATCH 06/23/16 19:45 Urine Color YELLOW 06/23/16 19:45 Urine Clarity CLEAR (CLEAR) 06/23/16 19:45 Urine pH 6.5 06/23/16 19:45 Ur Specific [place] 1.020 (1.005-1.030) 06/23/16 19:45 Urine Protein NEGATIVE mg/dL (NEGATIVE) 06/23/16 19:45 Urine Glucose (UA) NEGATIVE mg/dL (NEGATIVE) 06/23/16 19:45 Urine Ketones NEGATIVE mg/dL (NEGATIVE) 06/23/16 19:45 Urine Blood NEGATIVE (NEGATIVE) 06/23/16 19:45 Urine Nitrate NEGATIVE (NEGATIVE) 06/23/16 19:45 Urine Bilirubin NEGATIVE (NEGATIVE) 06/23/16 19:45 Urine Urobilinogen 0.2 E.U./dL (0.2 - 1.0) 06/23/16 19:45 Ur Leukocyte Esterase NEGATIVE (NEGATIVE) 06/23/16 19:45 Urine RBC NONE SEEN /hpf (0-5) 06/23/16 19:45 Urine WBC NONE SEEN /hpf (0-5) 06/23/16 19:45 Ur Epithelial Cells NONE SEEN /lpf (FEW) 06/23/16 19:45 Urine Bacteria NONE SEEN /hpf (NONE SEEN) 06/23/16 19:45 Urine Test NEGATIVE 06/23/16 19:45 - Physical Exam Vitals and I&O: Vital Signs Temp 97.9 F 06/25/16 12:00 Pulse 73 06/25/16 12:00 Resp 18 06/25/16 12:00 BP 125/59 06/25/16 12:00 Pulse Ox 96 06/25/16 12:00 Intake & Output 06/24/16 06/25/16 06/25/16 18:59 06:59 18:59 Intake Total 1982.333 680 Balance 1982.333 680 Intake: Intake, IV Amount 1133.333 200 D5-0.45NS 1,000 ml @ 80 1033.333 mls/hr IV .[id number] [facility] Rx #:[id number] Levofloxacin 500mg/100mL 100 500 mg In 100 ml @ 100 mls/hr IV Q24HR [facility] Rx#: [id number] metroNIDAZOLE 500mg/NS 100 100 100mL 500 mg In 100 ml @ 100 mls/hr IV Q8HR [facility] Rx #:[id number] Oral 850 480 Other: # Voids 3 4 # Bowel Movements 0 Active Medications: Current Medications Acetaminophen (Tylenol) 650 mg PO Q4HR PRN PRN Reason: Fever > 101 Stop: 08/23/16 14:07 Last Admin: 06/25/16 11:26 Dose: 650 mg Atenolol (Tenormin) 50 mg PO DAILY [facility] Stop: 08/23/16 08:59 Last Admin: 06/25/16 08:20 Dose: 50 mg Hydromorphone HCl (Dilaudid) 2 mg IVP Q4HR PRN PRN Reason: Severe Pain Stop: 08/24/16 07:50 Last Admin: 06/25/16 08:20 Dose: 2 mg Dextrose/Sodium Chloride (D5-0.45ns) 1,000 mls @ 80 mls/hr IV .[id number] [facility] Stop: 08/22/16 21:59 Last Infusion: 06/24/16 18:23 Dose: 80 mls/hr Levofloxacin (Levaquin Pb) 500 mg in 100 mls @ 100 mls/hr IV Q24HR [facility] Stop: 08/23/16 21:59 Last Infusion: 06/24/16 22:43 Dose: Infused Metronidazole (Flagyl) 500 mg in 100 mls @ 100 mls/hr IV Q8HR [facility] Stop: 08/23/16 04:59 Last Admin: 06/25/16 05:09 Dose: 100 mls/hr Insulin Aspart (Novolog) 0 units SUBQ ACHS [facility] PRN Reason: Protocol Stop: 08/22/16 22:29 Last Admin: 06/25/16 11:31 Dose: Not Given Lisinopril (Zestril) 20 mg PO BID [facility] Stop: 08/23/16 08:59 Last Admin: 06/25/16 08:20 Dose: 20 mg Morphine Sulfate (Morphine) 3 mg IVP Q3H PRN PRN Reason: Pain (Moderate) Stop: 08/22/16 22:14 Last Admin: 06/25/16 06:06 Dose: 3 mg Ondansetron HCl (Zofran) 4 mg IV Q6H PRN PRN Reason: Nausea / Vomiting Stop: 08/22/16 22:14 Simvastatin (Zocor) 10 mg PO HS [facility] Stop: 08/23/16 20:59 Last Admin: 06/24/16 20:35 Dose: 10 mg General: no acute distress, well developed, well nourished HEENT: atraumatic, normocephalic, PERRLA, EOMI, moist mucous membrane Neck: supple Cardiovascular: S1S2 Lungs: clear to auscultation bilaterally Abdomen: soft, no tender Extremities: no cyanosis, no clubbing, no edema Neurological: awake, alert, oriented Skin: intact - Procedures Procedures: Procedures Procedure Code Date DESTRUC-SHOULDER LES NEC 80.81 11/08/01 EXC SHOULDER EDGARDO DEEP < 5 [place] [address] 11/08/01 Infectious Disease Assmt/Plan - Assessment Assessment: 1. Rectal fistula. 2. Leukocytosis. 3. HTN 4. DM2 Continue the same treatment. Nutritional Asmnt/Malnutr-PDOC - Dietary Evaluation Malnutrition Findings (Please click <Entered> for more info): Nutritional Asmnt/Malnutrition Start: 06/24/16 14: 54 Text: Status: Complete Freq: Document 06/24/16 14:54 GSUN (Rec: 06/24/16 15:17 [email or web address] [email or web address]) Nutritional Asmnt/Malnutrition Patient General Information Nutritional Screening High Risk Screening Diagnosis Reason for visit: kim-rectal abscess Pertinent Medical Hx/Surgical Hx ER: DM, HTN Subjective Information 51 year old female from home, ractal pain and bloody stool. 4/12 AM operation: hemorrhoidectomy, sigmoidoscopy, no fissure or fistula. Per RN notes, diet advancement as tolerated. Observed clear liquid tray in front of pt. Pt was awake with family at bedside. RD mentioned blood sugar being high, pt appeared confused, will provide DM edu during follow up. Denied recnet weight changes. Current Diet Order/ Nutrition Support Clear liquid Pertinent Medications D5, Morphine, Zofran Pertinent Labs 06/23: A1c 6.3H, glucose 195H Nutritional Hx/Data Height 1.6 m Height (Calculated Centimeters) 160.0 Current Weight (lbs) 99.79 kg Weight (Calculated Kilograms) 99.8 Weight (Calculated Grams) 31684.3 Usual body Weight (lbs) 227 [place] Body Weight 115 GI Symptoms Food Allergies No Skin Integrity/Comment: Aaron 20. Operation around kim-rectal area, otherwise skin intact. Estimated Nutritional Goals BEE in Kcals: Adj wt of IBW Calories/Kcals/Kg AdjBW 141lb/64.2kg Kcals Calculated 1605-1926kcal (25-30kcal/kg) Protein: Adj wt of IBW Protein Calculated 51-64g (0.8-1g/kg) Fluid: ml 1605-1926ml (1ml/kcal) Nutritional Problem 1. Problem Problem Altered nutrition related laboratory values related to Etiology DM aeb Signs/Symptoms: A1c 6.3, glucose 195 on adm Intervention/Recommendation Comments 1. Diet advancement per MD as pt tolerates. Discussed advancement options with pt. 2. Recomend [id number] to promote glycemic control. 3. Provide DM edu during follow up. Expected Outcomes/Goals Expected Outcomes/Goals 1. PO intake to meet at least 75% of estimated nutritional needs.
--- NOTE | 2016-06-25 20:33 | General Progress Note ---
Subjective - Review of Systems Service Date: 06/25/16 Subjective: Patient feels better afebrile denied any complaints Objective - Results Result Diagrams: 06/25/16 05:26 06/25/16 05:26 Recent Labs: Laboratory Last Values WBC 15.2 Th/cmm (4.8-10.8) H 06/25/16 05:26 RBC 4.25 Mil/cmm (3.80-5.10) 06/25/16 05:26 Hgb 12.5 gm/dL (11.7-15.5) 06/25/16 05:26 Hct 37.4 % (35.0-45.0) 06/25/16 05:26 MCV 87.8 fl (81-100) 06/25/16 05:26 MCH 29.4 pg (27.0-31.0) 06/25/16 05:26 MCHC Differential 33.5 pg (28.0-36.0) 06/25/16 05:26 RDW 12.8 % (11.5-20.0) 06/25/16 05:26 Plt Count 220 Th/cmm (150-400) 06/25/16 05:26 MPV 7.8 fl 06/25/16 05:26 Neutrophils % 78.9 % (40.0-80.0) 06/25/16 05:26 Lymphocytes % 11.6 % (20.0-50.0) L 06/25/16 05:26 Monocytes % 6.4 % (2.0-10.0) 06/25/16 05:26 Eosinophils % 0.7 % (0.0-5.0) 06/25/16 05:26 Basophils % 2.4 % (0.0-2.0) H 06/25/16 05:26 Sodium 139 mEq/L (136-145) 06/25/16 05:26 Potassium 4.0 mEq/L (3.5-5.1) 06/25/16 05:26 Chloride 108 mEq/L (98-107) H 06/25/16 05:26 Carbon Dioxide 27.1 mEq/L (21.0-31.0) 06/25/16 05:26 Anion Gap 7.9 (7.0-16.0) 06/25/16 05:26 BUN 5 mg/dL (7-25) L 06/25/16 05:26 Creatinine 0.5 mg/dL (0.6-1.2) L 06/25/16 05:26 Est GFR ( Amer) > 60.0 ml/min (>90) 06/25/16 05:26 Est GFR (Non-Af Amer) > 60.0 ml/min 06/25/16 05:26 BUN/Creatinine Ratio 10.0 06/25/16 05:26 Glucose 176 mg/dL (70-105) H 06/25/16 05:26 POC Glucose 143 MG/DL (70 - 105) H 06/25/16 17:02 Hemoglobin A1c % 6.3 % (4.0-6.0) H 06/23/16 20:15 Whole Bld Lactic Acid 1.06 mmol/L (0.60-1.99) 06/23/16 21:10 Calcium 8.8 mg/dL (8.6-10.3) 06/25/16 05:26 Total Bilirubin 0.3 mg/dL (0.3-1.0) 06/23/16 20:15 AST 11 U/L (13-39) L 06/23/16 20:15 ALT 12 U/L (7-52) 06/23/16 20:15 Alkaline Phosphatase 70 U/L (34-104) 06/23/16 20:15 Total Protein 7.5 gm/dL (6.0-8.3) 06/23/16 20:15 Albumin 3.8 gm/dL (3.7-5.3) 06/23/16 20:15 Globulin 3.7 gm/dL 06/23/16 20:15 Albumin/Globulin Ratio 1.0 (1.0-1.8) 06/23/16 20:15 Urine Source CLEAN CATCH 06/23/16 19:45 Urine Color YELLOW 06/23/16 19:45 Urine Clarity CLEAR (CLEAR) 06/23/16 19:45 Urine pH 6.5 06/23/16 19:45 Ur Specific [place] 1.020 (1.005-1.030) 06/23/16 19:45 Urine Protein NEGATIVE mg/dL (NEGATIVE) 06/23/16 19:45 Urine Glucose (UA) NEGATIVE mg/dL (NEGATIVE) 06/23/16 19:45 Urine Ketones NEGATIVE mg/dL (NEGATIVE) 06/23/16 19:45 Urine Blood NEGATIVE (NEGATIVE) 06/23/16 19:45 Urine Nitrate NEGATIVE (NEGATIVE) 06/23/16 19:45 Urine Bilirubin NEGATIVE (NEGATIVE) 06/23/16 19:45 Urine Urobilinogen 0.2 E.U./dL (0.2 - 1.0) 06/23/16 19:45 Ur Leukocyte Esterase NEGATIVE (NEGATIVE) 06/23/16 19:45 Urine RBC NONE SEEN /hpf (0-5) 06/23/16 19:45 Urine WBC NONE SEEN /hpf (0-5) 06/23/16 19:45 Ur Epithelial Cells NONE SEEN /lpf (FEW) 06/23/16 19:45 Urine Bacteria NONE SEEN /hpf (NONE SEEN) 06/23/16 19:45 Urine Test NEGATIVE 06/23/16 19:45 - Physical Exam Vitals and I&O: Vital Signs Temp 98.2 F 06/25/16 16:15 Pulse 79 06/25/16 16:27 Resp 17 06/25/16 16:15 BP 110/45 06/25/16 16:27 Pulse Ox 99 06/25/16 16:15 Intake & Output 06/25/16 06/25/16 06/26/16 06:59 18:59 06:59 Intake Total 780 Balance 780 Intake: Intake, IV Amount 300 Levofloxacin 500mg/100mL 100 500 mg In 100 ml @ 100 mls/hr IV Q24HR [facility] Rx#: [id number] metroNIDAZOLE 500mg/NS 200 100mL 500 mg In 100 ml @ 100 mls/hr IV Q8HR [facility] Rx #:[id number] Oral 480 Other: # Voids 4 Cardiovascular: Normal S1, Normal S2 Lungs: Clear to auscultation Abdomen: Soft, no Tender - Procedures Procedures: Procedures Procedure Code Date ANUS SURGERY PROCEDURE 31602 06/23/16 DESTRUC-SHOULDER LES NEC 80.81 11/08/01 DIAGNOSTIC SIGMOIDOSCOPY 91336 06/23/16 EXC SHOULDER EDGARDO DEEP < 5 CM 36206 11/08/01 EXCISION OF HEMORRHOIDAL PLEXUS, OPEN APPROACH [id number] 06/23/16 INSPECTION OF LOWER INTESTINAL TRACT, ENDO [id number] 06/23/16 Assessment/Plan - Assessment Assessment: Ext hemorrhoids DM II HTN OBESITY Leucocytosis ? etiology - Plan Plan: Pt better DC home today Patient was advised to follow up with PMD in one week Scripts given DC plan discussed with nursing staff Nutritional Asmnt/Malnutr-PDOC - Dietary Evaluation Malnutrition Findings (Please click <Entered> for more info): Nutritional Asmnt/Malnutrition Start: 06/24/16 14: 54 Text: Status: Complete Freq: Document 06/24/16 14:54 GSUN (Rec: 06/24/16 15:17 GSUN [email or web address]) Nutritional Asmnt/Malnutrition Patient General Information Nutritional Screening High Risk Screening Diagnosis Reason for visit: kim-rectal abscess Pertinent Medical Hx/Surgical Hx ER: DM, HTN Subjective Information 51 year old female from home, ractal pain and bloody stool. 4 AM operation: hemorrhoidectomy, sigmoidoscopy, no fissure or fistula. Per RN notes, diet advancement as tolerated. Observed clear liquid tray in front of pt. Pt was awake with family at bedside. RD mentioned blood sugar being high, pt appeared confused, will provide DM edu during follow up. Denied recnet weight changes. Current Diet Order/ Nutrition Support Clear liquid Pertinent Medications D5, Morphine, Zofran Pertinent Labs 06/23: A1c 6.3H, glucose 195H Nutritional Hx/Data Height 1.6 m Height (Calculated Centimeters) 160.0 Current Weight (lbs) 99.79 kg Weight (Calculated Kilograms) 99.8 Weight (Calculated Grams) 93554.3 Usual body Weight (lbs) 227 [place] Body Weight 115 GI Symptoms Food Allergies No Skin Integrity/Comment: Aaron 20. Operation around kim-rectal area, otherwise skin intact. Estimated Nutritional Goals BEE in Kcals: Adj wt of IBW Calories/Kcals/Kg AdjBW 141lb/64.2kg Kcals Calculated 1605-1926kcal (25-30kcal/kg) Protein: Adj wt of IBW Protein Calculated 51-64g (0.8-1g/kg) Fluid: ml 1605-1926ml (1ml/kcal) Nutritional Problem 1. Problem Problem Altered nutrition related laboratory values related to Etiology DM aeb Signs/Symptoms: A1c 6.3, glucose 195 on adm Intervention/Recommendation Comments 1. Diet advancement per MD as pt tolerates. Discussed advancement options with pt. 2. Recomend [id number] to promote glycemic control. 3. Provide DM edu during follow up. Expected Outcomes/Goals Expected Outcomes/Goals 1. PO intake to meet at least 75% of estimated nutritional needs.
--- NOTE | 2016-06-28 18:11 | History & Physical ---
ADMIT DATE: 06/23/2016 CHIEF COMPLAINT: Rectal pain. HISTORY OF PRESENT ILLNESS: This is the case of a 51-year-old female who few days ago, was discharged from this hospital. The patient came reporting anal pain. The patient was treated for hemorrhoids. She had hemorrhoidectomy and was sent home. The patient came back complaining of increasing of pain in the perianal area. Abdominal CT was done and was found left perianal abscess with a fluid collection containing approximately 6.1 cm, in the cephalocaudal dimension 5.4 and AP dimension of 3.4 in the perianal area. For this reason, the patient was hospitalized for treatment. PAST MEDICAL HISTORY: The patient has past medical history of diabetes mellitus, hypertension and obesity. PAST SURGICAL HISTORY: The patient has abdominal surgery for ovarian cyst and hemorrhoidectomy. PAST FAMILY HISTORY: Unremarkable. PAST SOCIAL HISTORY: The patient denies use of alcohol or drugs. She lives at home with family. ALLERGIES: Penicillin. REVIEW OF SYSTEMS: LUNGS: The patient denies shortness of breath. HEART: The patient denies chest pain. ABDOMEN: Unremarkable. EXTREMITIES: Unremarkable. GENITOURINARY: Anal area, the patient refers pain in perianal area. PHYSICAL EXAMINATION: GENERAL: Does reveal a fairly nourished and developed female, awake, alert, in no acute distress. HEENT: Head is normocephalic and atraumatic. Eyes: Pupils reactive to light. Nose: No evidence of nasal obstruction. Ears: No evidence of any discharge. Mouth: Fairly keep. LUNGS: Bilateral air entry. No wheezing, no crackles. HEART: Regular rate and rhythm. ABDOMEN: Soft, nontender. Bowel sounds present. EXTREMITIES: No edema. Full movement of all extremities. GENITOURINARY: Perianal area, there is an abscess painful to palpation. NEUROLOGICAL: The patient is awake, alert, in no acute distress. Nerves II through XII grossly intact. IMPRESSION: 1. Perianal area abscess. 2. Diabetes mellitus. 3. Hypertension. 4. Obesity. PLAN: 1. Admit to [facility]. 2. IV normal saline. 3. Vancomycin. 4. Flagyl. 5. DIET: Low in sodium and diabetic diet. 6. Consult with Dr. Mccartney, surgeon and consult with Dr. Cristian Merritt, ID. JOB# [id number]
== END 2016-06-25 18:50 | disposition home or self-care (01) | DRG 226 ==
LOC: ER 19:21 → MSI 21:41
PROVIDERS: ADMIT Family Medicine; ATTEND Family Medicine
PROC: 06BY0ZC Excision of Hemorrhoidal Plexus, Open Approach (ICD-10-PCS; principal; 2016-06-24)
PROC: 0DJD8ZZ Inspection of Lower Intestinal Tract, Via Natural or Artificial Opening Endoscopic (ICD-10-PCS; 2016-06-24)
DX: K64.4 Residual hemorrhoidal skin tags (principal); I10 Essential (primary) hypertension; D72.829 Elevated white blood cell count, unspecified; E11.9 Type 2 diabetes mellitus without complications; K62.5 Hemorrhage of anus and rectum; E78.5 Hyperlipidemia, unspecified; E66.9 Obesity, unspecified; Z68.39 Body mass index [BMI] 39.0-39.9, adult; Z88.0 Allergy status to penicillin
CPT/HCPCS: 36415-UA; 80048-TC; 80053-TC; 81001-TC; 81025-TC; 82948-90; 83036-90; 83605; 85025-TC; 88304-TC; 90799; J0744; J1170; J1815; J1885; J1956; J2060; J2250; J7030; Z7610

== ENCOUNTER 2016-06-27 23:43 | Inpatient (IN) | payer OTHER ==
--- NOTE | 2016-06-27 23:51 | ED Physician Chart ---
Chief Complaint/HPI - Patient Information Date Seen:: 06/27/16 Time Seen:: 23:45 Chief Complaint:: buttock pain History of Present Illness:: 51-year-old female, complains of acute, constant, aching, worsening, severe, 10 out of 10, radiating from the left buttock to the left vaginal area, left buttock pain 6 months with acute worsening over the past 2 weeks. Had a surgery performed for excision of anal skin tag on Wednesday. Pain is much worse with sitting. Has tried multiple pain medications but pain remains severe 10 out of 10. Denies nausea, vomiting, abdominal pain, palpitations, chest pain, acute vision changes, dysuria. Allergies:: Allergies Allergy/AdvReac Type Severity Reaction Status Date / Time Penicillins [PCN] Allergy Verified 06/23/16 19:56 Historian:: Patient Review:: Nurse's Note Reviewed Review of Systems - Review of Systems Other: Complete system review otherwise unremarkable except as noted in history of present illness. Past Medical History - Past Medical History Past Medical History: HTN Family History: None Social History: Non Smoker, No Alcohol, No Drug Use, Surgical History: other (rectal skin tag excision) Psychiatricy History: None Medication: Reviewed Family Medical History - Family Member Mother History Unknown: Yes Ethnicity: Living Status: Unknown Labs/Radiology/EKG Results - Radiology Results Results: CT pelvis with contrast preliminary report per radiology. There is a large perianal abscess in the left buttock. ED Septic Shock - . Is Septic Shock (SBP<90, OR Lactate>4 mmol\L) present?: No Reassessment (Disposition) - Reassessment Reassessment:: This patient has a large perianal abscess tracking through the left buttock. CT of the pelvis with contrast demonstrates the extent of it. This will need surgical incision and drainage in the operating room. We did give IV antibiotics. We also gave IV analgesics of Toradol. Pain greatly improved. Discussed with admitting physician. Patient will be admitted for further workup and treatment. Reassessment Condition:: Improved - Diagnosis Diagnosis:: Acute buttock pain due to acute, left-sided Perianal abscess - Patient Disposition Admitted to:: Med/Surg Admitting Medical Physician:: Osbaldo Porter Time:: 01:59 Condition at Disposition:: Improved ED Discharge Plan - Patient Disposition Admit/Discharge/Transfer: Acute Care w/in this hosp Condition at Disposition: Improved
[2016-06-28] MEDS ORDERED: Dexamethasone Sodium Phos 4 mg/mL Vial IVP STA (00:20)
[2016-06-28] MEDS ORDERED: Morphine Sulfate 2 mg/mL 1mL Syr IVP ONE (00:20)
[2016-06-28] MEDS ORDERED: Dexamethasone Sodium Phos 10 mg/mL PF Vial ONE (00:48)
[2016-06-28] MEDS ORDERED: Morphine Sulfate 2 mg/mL 1mL Syr ONE (00:49)
[2016-06-28 00:59] LABS: % EOSINOPHILS 1.5 % (0.0-5.0); % LYMPHOCYTES 14.1 % (20.0-50.0); % NEUTROPHILS 77.4 % (40.0-80.0); HEMATOCRIT 39.7 % (35.0-45.0); HEMOGLOBIN 13.3 gm/dL (11.7-15.5); MEAN CELL VOLUME 87.6 fl (81-100); MEAN CORPUSCULAR HEMOGLOBIN 29.3 pg (27.0-31.0); MEAN CORPUSCULAR HGB CONC 33.4 pg (28.0-36.0); MEAN PLATELET VOLUME 7.8 fl; RED BLOOD COUNT 4.54 Mil/cmm (3.80-5.10); RED CELL DISTRIBUTION WIDTH 12.8 % (11.5-20.0)
[2016-06-28 01:04] LABS: PLATELET COUNT 269 Th/cmm (150-400); WHITE BLOOD COUNT 15.5 Th/cmm (4.8-10.8)
[2016-06-28] MEDS ORDERED: IOHEXOL 300MG/ML 100 ML VIAL ONE (01:10)
[2016-06-28 01:12] LABS: ALB/GLOB RATIO 0.9 (1.0-1.8); ALKALINE PHOSPHATASE 54 U/L (34-104); ANION GAP 9.6 (7.0-16.0); BILIRUBIN,TOTAL 0.4 mg/dL (0.3-1.0); BUN - UREA NITROGEN 10 mg/dL (7-25); CALCIUM SERUM 9.1 mg/dL (8.6-10.3); CARBON DIOXIDE 25.9 mEq/L (21.0-31.0); CHLORIDE 103 mEq/L (98-107); CREATININE - SERUM 0.5 mg/dL (0.6-1.2); GLUCOSE 110 mg/dL (70-105); INR 1.04 (0.5-1.4); POTASSIUM SERUM 3.5 mEq/L (3.5-5.1); PROTHROMBIN TIME (TEST) 10.8 SECONDS (9.5-11.5); SGOT 11 U/L (13-39); SGPT/ALT 9 U/L (7-52); SODIUM SERUM 135 mEq/L (136-145)
[2016-06-28] MEDS ORDERED: Ciprofloxacin 400mg Premix PB 400 MG/200 ML BAG IV ONE ×2 (02:16→02:19)
[2016-06-28] MEDS ORDERED: metroNIDAZOLE 500mg/NS 100mL 500 MG/100 ML BAG IV ONE ×2 (02:16→02:19)
--- NOTE | 2016-06-28 05:09 | Admit Criteria Form ---
Admit Criteria Forms - Admit Criteria Diagnosis: WOUND AND SKIN MANAGEMENT [facility] Clinical Indications for Procedure (Place 'X' for any and all applicable criteria): Surgery or other procedure covered by this guideline is indicated for ANY ONE of the following: [] I.Skin lesion excision or other surgery needed as indicated by ANY ONE of the following (1)(2) : [] a) Melanoma(3) [] b) Hidradenitis suppurativa(5)(6) [] c) Other malignant tumor (eg, basal or squamous cell carcinoma)(4) [] d) Benign tumor that is causing significant functional impairment [] e) Benign tumor with recurrent infection not responsive to nonsurgical therapy [] II. Pressure ulcer closure or other procedure needed; indications include ANY ONE of the following(7)(8)(9) : [] a) Stage III or IV ulcer in medically stable patient not healing with conservative management A [] b) Prolonged healing (> 12 weeks) will significantly interfere with other patient care needs. [] III. Burn care needed (thermal, electrical, chemical, or frostbite) as indicated by ANY ONE of the following(10)(11(12)(13): [] a) Partial thickness burn greater than 10% of body surface area [] c) Full thickness burn [] d) Significant welsh of hands, feet, face, perineum, genitalia, or major joints [] e) Significant electrical injury (14) [] f) Chemical welsh [] g) Circumferential welsh [] h) Significant inhalation injury [] i) Welsh in patients with pre-existing medical comorbidities that could complicate management (eg, heart failure, COPD, diabetes) [] j) Welsh with concomitant trauma requiring inpatient management [] IV. Skin grafting needed (skin, flap, pedicle, or other tissue transfer graft ) as indicated by ANY ONE of the following (14)(15): [] a) Large wounds or ulcers(7) [] b) Healing welsh(10)(16) [] c) Reconstructive surgery [] V. Skin disease or infection requiring inpatient care procedures; ANY ONE of the following (19)(20) : [] a) Severe pemphigus (eg, treatment of large body area required; steroids greater than 80 mg/day; immunosuppressive therapy commencement) [] b) Psoriasis requiring large area (eg, 50% of body surface area) complex care (eg, anthralin, tar) not performable at any other level of care B ( 21)(22) [] c) Toxic epidermal necrolysis [] d) Herpes zoster (disseminated or involving large area, (eg, whole trunk))(23) [] e) Generalized urticaria not responding to emergency treatment(24) [] f) Steve-Galileo syndrome [] g) Neutrophilic dermatosis (eg, pyoderma gangrenosum, Sweet syndrome) requiring high-dose immunosuppression or wound debridement(29) [] h) Other disorder requiring inpatient level of care [] i) Herpes zoster (disseminated or involving large area, (eg, whole trunk))(23) [] j) Generalized urticaria not responding to emergency treatment(24) [X] . Incision or drainage needed of skin or subcutaneous tissue(5)(17)(18) [] VII. Wound debridement or complex care needed (eg, ulcer with necrosis)(14)( 18)(19) [] VIII.Postoperative complex wound care (eg, necrotic surgical wound)(14) (18) [] IX. Trauma care needed as indicated by ANY ONE of the following: [] a) Traumatic amputation(29) [] b) Major skin loss (eg, degloving injury) [] c) Crush or contusion with possible compartment syndrome(29) [] d) Severe tissue destruction or necrosis from bite or sting(30)(31) The original [facility] [employer] content created by [employer] has been revised. The portions of the content which have been revised are identified through the use of italic text or in bold, and [facility] [employer] [facility] has neither reviewed nor approved the modified material. All other unmodified content is copyright [facility] [employer]. Please see references footnoted in the original [facility] [employer] edition 2016 Admit Criteria Met?: Yes
--- NOTE | 2016-06-28 09:10 | Diagnostic Imaging Report ---
INDICATION: Pain Technique: Serial axial images were performed through the pelvis and then reformatted in the coronal plane. CTDI is 24mGy. [id number] FINDINGS: The bladder is smooth walled. The uterus is anteverted. No adnexal masses. No free fluid. In the left perianal soft tissues there is a fluid collection containing gas measuring 6.1 cm in cephalocaudal dimensions, 5.4 cm in AP dimension, and 3.4 cm in transverse dimension. On bone windows are no destructive lesion of bone. IMPRESSION: Left perianal abscess
[2016-06-28] MEDS ORDERED: PRAVASTATIN SODIUM 20 MG PO SCH (10:00)
[2016-06-28] MEDS ORDERED: Sodium Chloride 0.9% 1,000 ML IV SCH (10:00)
[2016-06-28] MEDS ORDERED: Non-Formulary Item 1 EA (Atenolol [Atenolol] 50 MG) PO SCH (10:00)
--- NOTE | 2016-06-28 10:34 | General Progress Note ---
Subjective - Review of Systems Service Date: 06/28/16 Events since last encounter: was here 4 days ago and underwent sigmoidoscopy and excision of skin tag ( external hemorrhoid} on right perianal area. now complains of pain left perianal area. PE: swollen left perianal area raising question of abscess Plan: exam under anesthesia and possible I and D of abscess Objective - Results Result Diagrams: 06/28/16 00:45 06/28/16 00:45 Recent Labs: Laboratory Last Values WBC 15.5 Th/cmm (4.8-10.8) H 06/28/16 00:45 RBC 4.54 Mil/cmm (3.80-5.10) 06/28/16 00:45 Hgb 13.3 gm/dL (11.7-15.5) 06/28/16 00:45 Hct 39.7 % (35.0-45.0) 06/28/16 00:45 MCV 87.6 fl (81-100) 06/28/16 00:45 MCH 29.3 pg (27.0-31.0) 06/28/16 00:45 MCHC Differential 33.4 pg (28.0-36.0) 06/28/16 00:45 RDW 12.8 % (11.5-20.0) 06/28/16 00:45 Plt Count 269 Th/cmm (150-400) D 06/28/16 00:45 MPV 7.8 fl 06/28/16 00:45 Neutrophils % 77.4 % (40.0-80.0) 06/28/16 00:45 Lymphocytes % 14.1 % (20.0-50.0) L 06/28/16 00:45 Monocytes % 7.0 % (2.0-10.0) 06/28/16 00:45 Eosinophils % 1.5 % (0.0-5.0) 06/28/16 00:45 Basophils % 0.0 % (0.0-2.0) 06/28/16 00:45 PT 10.8 SECONDS (9.5-11.5) 06/28/16 00:45 INR 1.04 (0.5-1.4) 06/28/16 00:45 PTT (Actin FS) 26.8 SECONDS (26.0-38.0) 06/28/16 00:45 Sodium 135 mEq/L (136-145) L 06/28/16 00:45 Potassium 3.5 mEq/L (3.5-5.1) 06/28/16 00:45 Chloride 103 mEq/L (98-107) 06/28/16 00:45 Carbon Dioxide 25.9 mEq/L (21.0-31.0) 06/28/16 00:45 Anion Gap 9.6 (7.0-16.0) 06/28/16 00:45 BUN 10 mg/dL (7-25) 06/28/16 00:45 Creatinine 0.5 mg/dL (0.6-1.2) L 06/28/16 00:45 Est GFR ( Amer) > 60.0 ml/min (>90) 06/28/16 00:45 Est GFR (Non-Af Amer) > 60.0 ml/min 06/28/16 00:45 BUN/Creatinine Ratio 20.0 06/28/16 00:45 Glucose 110 mg/dL (70-105) H 06/28/16 00:45 Whole Bld Lactic Acid 0.75 mmol/L (0.60-1.99) 06/28/16 00:45 Calcium 9.1 mg/dL (8.6-10.3) 06/28/16 00:45 Total Bilirubin 0.4 mg/dL (0.3-1.0) 06/28/16 00:45 AST 11 U/L (13-39) L 06/28/16 00:45 ALT 9 U/L (7-52) 06/28/16 00:45 Alkaline Phosphatase 54 U/L (34-104) 06/28/16 00:45 Total Protein 7.3 gm/dL (6.0-8.3) 06/28/16 00:45 Albumin 3.5 gm/dL (3.7-5.3) L 06/28/16 00:45 Globulin 3.8 gm/dL 06/28/16 00:45 Albumin/Globulin Ratio 0.9 (1.0-1.8) L 06/28/16 00:45 - Physical Exam Vitals and I&O: Vital Signs Temp 97.3 F 06/28/16 07:46 Pulse 71 06/28/16 07:46 Resp 19 06/28/16 07:46 BP 124/61 06/28/16 07:46 Pulse Ox 96 06/28/16 07:46 Intake & Output 06/27/16 06/28/16 06/28/16 18:59 06:59 18:59 Intake Total 420 Balance 420 Weight (lbs) 99.79 kg Intake: Oral 420 Other: # Voids 1 # Bowel Movements 0 Active Medications: Current Medications Acetaminophen (Tylenol) 650 mg PO Q6H PRN PRN Reason: Pain or Fever >101 Stop: 08/27/16 10:03 Metronidazole (Flagyl) 500 mg in 100 mls @ 100 mls/hr IV Q8HR [facility] Stop: 08/27/16 12:59 Vancomycin HCl 1.5 gm/ Sodium (Chloride) 500 mls @ 250 mls/hr IV Q12H [facility] Stop: 08/27/16 09:59 Sodium Chloride (Nacl 0.9%) 1,000 mls @ 75 mls/hr IV .[id number] [facility] Stop: 08/27/16 09:59 Insulin Aspart (Novolog Insulin Sliding Scale) 0 units SUBQ Q6HR [facility] PRN Reason: Protocol Stop: 08/27/16 11:59 Lisinopril (Zestril) 20 mg PO BID [facility] Stop: 08/27/16 09:59 Miscellaneous (Vancomycin Iv Per Pharmacy) 1 ea MC PRN PRN PRN Reason: PROTOCOL Stop: 08/27/16 07:20 Miscellaneous (Atenolol [Atenolol]) 50 mg PO DAILY [facility] Stop: 08/27/16 09:59 Miscellaneous (Pravastatin Sodium [Pravastatin Sodium]) 20 mg PO DAILY [facility] Stop: 08/27/16 09:59 Ondansetron HCl (Zofran) 4 mg IV Q6H PRN PRN Reason: Nausea / Vomiting Stop: 08/27/16 10:03 Pioglitazone HCl (Actos) 30 mg PO DAILY [facility] Stop: 08/27/16 09:59 Tramadol HCl (Ultram) 50 mg PO Q4HR PRN PRN Reason: Pain (Severe) Stop: 08/27/16 09:57 - Procedures Procedures: Procedures Procedure Code Date ANUS SURGERY PROCEDURE 20035 06/23/16 DESTRUC-SHOULDER LES NEC 80.81 11/08/01 DIAGNOSTIC SIGMOIDOSCOPY 95141 06/23/16 EXC SHOULDER EDGARDO DEEP < 5 CM 27777 11/08/01 EXCISION OF HEMORRHOIDAL PLEXUS, OPEN APPROACH [id number] 06/23/16 INSPECTION OF LOWER INTESTINAL TRACT, ENDO [id number] 06/23/16
[2016-06-28] MEDS ORDERED: Bupivacaine 0.75% 10 mL Vial INJ ONE (12:01)
[2016-06-28] MEDS ORDERED: Midazolam 1mg/ml 2 ml vial IV ONE ×2 (12:06)
--- NOTE | 2016-06-28 12:35 | General Progress Note ---
Subjective - Review of Systems Service Date: 06/28/16 Events since last encounter: surgery under spinal anesthesia left kim-anal abscess drained - C and S ordered no fistula found continue meds hot sitz bath in AM Objective - Results Result Diagrams: 06/28/16 00:45 06/28/16 00:45 Recent Labs: Laboratory Last Values WBC 15.5 Th/cmm (4.8-10.8) H 06/28/16 00:45 RBC 4.54 Mil/cmm (3.80-5.10) 06/28/16 00:45 Hgb 13.3 gm/dL (11.7-15.5) 06/28/16 00:45 Hct 39.7 % (35.0-45.0) 06/28/16 00:45 MCV 87.6 fl (81-100) 06/28/16 00:45 MCH 29.3 pg (27.0-31.0) 06/28/16 00:45 MCHC Differential 33.4 pg (28.0-36.0) 06/28/16 00:45 RDW 12.8 % (11.5-20.0) 06/28/16 00:45 Plt Count 269 Th/cmm (150-400) D 06/28/16 00:45 MPV 7.8 fl 06/28/16 00:45 Neutrophils % 77.4 % (40.0-80.0) 06/28/16 00:45 Lymphocytes % 14.1 % (20.0-50.0) L 06/28/16 00:45 Monocytes % 7.0 % (2.0-10.0) 06/28/16 00:45 Eosinophils % 1.5 % (0.0-5.0) 06/28/16 00:45 Basophils % 0.0 % (0.0-2.0) 06/28/16 00:45 PT 10.8 SECONDS (9.5-11.5) 06/28/16 00:45 INR 1.04 (0.5-1.4) 06/28/16 00:45 PTT (Actin FS) 26.8 SECONDS (26.0-38.0) 06/28/16 00:45 Sodium 135 mEq/L (136-145) L 06/28/16 00:45 Potassium 3.5 mEq/L (3.5-5.1) 06/28/16 00:45 Chloride 103 mEq/L (98-107) 06/28/16 00:45 Carbon Dioxide 25.9 mEq/L (21.0-31.0) 06/28/16 00:45 Anion Gap 9.6 (7.0-16.0) 06/28/16 00:45 BUN 10 mg/dL (7-25) 06/28/16 00:45 Creatinine 0.5 mg/dL (0.6-1.2) L 06/28/16 00:45 Est GFR ( Amer) > 60.0 ml/min (>90) 06/28/16 00:45 Est GFR (Non-Af Amer) > 60.0 ml/min 06/28/16 00:45 BUN/Creatinine Ratio 20.0 06/28/16 00:45 Glucose 110 mg/dL (70-105) H 06/28/16 00:45 Whole Bld Lactic Acid 0.75 mmol/L (0.60-1.99) 06/28/16 00:45 Calcium 9.1 mg/dL (8.6-10.3) 06/28/16 00:45 Total Bilirubin 0.4 mg/dL (0.3-1.0) 06/28/16 00:45 AST 11 U/L (13-39) L 06/28/16 00:45 ALT 9 U/L (7-52) 06/28/16 00:45 Alkaline Phosphatase 54 U/L (34-104) 06/28/16 00:45 Total Protein 7.3 gm/dL (6.0-8.3) 06/28/16 00:45 Albumin 3.5 gm/dL (3.7-5.3) L 06/28/16 00:45 Globulin 3.8 gm/dL 06/28/16 00:45 Albumin/Globulin Ratio 0.9 (1.0-1.8) L 06/28/16 00:45 - Physical Exam Vitals and I&O: Vital Signs Temp 97.4 F 06/28/16 11:45 Pulse 73 06/28/16 11:45 Resp 19 06/28/16 11:45 BP 149/77 06/28/16 11:45 Pulse Ox 97 06/28/16 11:45 Intake & Output 06/27/16 06/28/16 06/28/16 18:59 06:59 18:59 Intake Total 420 Balance 420 Weight (lbs) 99.79 kg Intake: Oral 420 Other: # Voids 1 # Bowel Movements 0 Active Medications: Current Medications Acetaminophen (Tylenol) 650 mg PO Q6H PRN PRN Reason: Pain or Fever >101 Stop: 08/27/16 10:03 Atenolol (Tenormin) 50 mg PO DAILY [facility] Stop: 08/28/16 08:59 Metronidazole (Flagyl) 500 mg in 100 mls @ 100 mls/hr IV Q8HR [facility] Stop: 08/27/16 12:59 Vancomycin HCl 1.5 gm/ Sodium (Chloride) 500 mls @ 250 mls/hr IV Q12H [facility] Stop: 08/27/16 09:59 Sodium Chloride (Nacl 0.9%) 1,000 mls @ 75 mls/hr IV .[id number] [facility] Stop: 08/27/16 09:59 Insulin Aspart (Novolog Insulin Sliding Scale) 0 units SUBQ Q6HR [facility] PRN Reason: Protocol Stop: 08/27/16 11:59 Lisinopril (Zestril) 20 mg PO BID [facility] Stop: 08/27/16 09:59 Miscellaneous (Vancomycin Iv Per Pharmacy) 1 ea [facility] PRN PRN PRN Reason: PROTOCOL Stop: 08/27/16 07:20 Miscellaneous (Atenolol [Atenolol]) 50 mg PO DAILY [facility] Stop: 08/27/16 09:59 Miscellaneous (Pravastatin Sodium [Pravastatin Sodium]) 20 mg PO DAILY [facility] Stop: 08/27/16 09:59 Ondansetron HCl (Zofran) 4 mg IV Q6H PRN PRN Reason: Nausea / Vomiting Stop: 08/27/16 10:03 Pioglitazone HCl (Actos) 30 mg PO DAILY [facility] Stop: 08/27/16 09:59 Tramadol HCl (Ultram) 50 mg PO Q4HR PRN PRN Reason: Pain (Severe) Stop: 08/27/16 09:57 - Procedures Procedures: Procedures Procedure Code Date ANUS SURGERY PROCEDURE 18059 06/23/16 DESTRUC-SHOULDER LES NEC 80.81 11/08/01 DIAGNOSTIC SIGMOIDOSCOPY 68541 06/23/16 EXC SHOULDER EDGARDO DEEP < 5 CM 33767 11/08/01 EXCISION OF HEMORRHOIDAL PLEXUS, OPEN APPROACH [id number] 06/23/16 INSPECTION OF LOWER INTESTINAL TRACT, ENDO [id number] 06/23/16
[2016-06-28] MEDS ORDERED: Meperidine 25 mg/mL 1mL Syr IVP PRN (12:41)
[2016-06-28] MEDS ORDERED: Lactated Ringer 1,000 ML IV SCH (12:45)
[2016-06-28] MEDS: metroNIDAZOLE 500mg/NS 100mL 500 MG/100 ML BAG IV SCH ×2 (13:00→21:42)
--- NOTE | 2016-06-28 14:53 | Operative Report ---
DATE OF SURGERY: 06/28/2016 PREOPERATIVE DIAGNOSES: 1. Left perianal abscess. 2. Status post right external hemorrhoidectomy (7 o'clock). 3. Diabetes mellitus. 4. Hypertension. 5. Obesity. POSTOPERATIVE DIAGNOSES: 1. Left perianal abscess - no fistula. 2. Anoscopy done with no fistula. OPERATION DONE: 1. Anoscopy. 2. Incision and drainage of perianal abscess at left perineal area around 4 o'clock location. SURGEON: Sherrill Geronimo MD ANESTHESIA: Spinal. ANESTHESIOLOGIST: Tammy Dior M.D. DETAILS OF PROCEDURE: The patient was given spinal anesthesia. She was then placed in the dorsal lithotomy position. The perineum was prepped with Betadine and draped. Anoscopy was done because of the large indurated mass in the left side of the perianal area. An incision was made and thick purulent material totaling about 100 mL was drained out. Cultures were taken. ____ was done to determine presence of any connecting fistula to the rectum and the anus and none was found. The wound was packed with iodoform gauze. Postoperative orders given and hot Sitz bath will be started tomorrow. JOB# [id number]
[2016-06-28] MEDS: INSULIN ASPART SLIDING SCALE 100 UNITS/ML UNIT SUBQ SCH ×2 (14:58→23:25)
[2016-06-28] MEDS: Vancomycin HCl 1.5 GM in Sodium Chloride 0.9% 500 ML IV SCH ×2 (15:16→22:45)
--- NOTE | 2016-06-28 15:55 | General Progress Note ---
Subjective - Review of Systems Service Date: 06/28/16 Subjective: Pain is less Objective - Results Result Diagrams: 06/28/16 00:45 06/28/16 00:45 Recent Labs: Laboratory Last Values WBC 15.5 Th/cmm (4.8-10.8) H 06/28/16 00:45 RBC 4.54 Mil/cmm (3.80-5.10) 06/28/16 00:45 Hgb 13.3 gm/dL (11.7-15.5) 06/28/16 00:45 Hct 39.7 % (35.0-45.0) 06/28/16 00:45 MCV 87.6 fl (81-100) 06/28/16 00:45 MCH 29.3 pg (27.0-31.0) 06/28/16 00:45 MCHC Differential 33.4 pg (28.0-36.0) 06/28/16 00:45 RDW 12.8 % (11.5-20.0) 06/28/16 00:45 Plt Count 269 Th/cmm (150-400) D 06/28/16 00:45 MPV 7.8 fl 06/28/16 00:45 Neutrophils % 77.4 % (40.0-80.0) 06/28/16 00:45 Lymphocytes % 14.1 % (20.0-50.0) L 06/28/16 00:45 Monocytes % 7.0 % (2.0-10.0) 06/28/16 00:45 Eosinophils % 1.5 % (0.0-5.0) 06/28/16 00:45 Basophils % 0.0 % (0.0-2.0) 06/28/16 00:45 PT 10.8 SECONDS (9.5-11.5) 06/28/16 00:45 INR 1.04 (0.5-1.4) 06/28/16 00:45 PTT (Actin FS) 26.8 SECONDS (26.0-38.0) 06/28/16 00:45 Sodium 135 mEq/L (136-145) L 06/28/16 00:45 Potassium 3.5 mEq/L (3.5-5.1) 06/28/16 00:45 Chloride 103 mEq/L (98-107) 06/28/16 00:45 Carbon Dioxide 25.9 mEq/L (21.0-31.0) 06/28/16 00:45 Anion Gap 9.6 (7.0-16.0) 06/28/16 00:45 BUN 10 mg/dL (7-25) 06/28/16 00:45 Creatinine 0.5 mg/dL (0.6-1.2) L 06/28/16 00:45 Est GFR ( Amer) > 60.0 ml/min (>90) 06/28/16 00:45 Est GFR (Non-Af Amer) > 60.0 ml/min 06/28/16 00:45 BUN/Creatinine Ratio 20.0 06/28/16 00:45 Glucose 110 mg/dL (70-105) H 06/28/16 00:45 Whole Bld Lactic Acid 0.75 mmol/L (0.60-1.99) 06/28/16 00:45 Calcium 9.1 mg/dL (8.6-10.3) 06/28/16 00:45 Total Bilirubin 0.4 mg/dL (0.3-1.0) 06/28/16 00:45 AST 11 U/L (13-39) L 06/28/16 00:45 ALT 9 U/L (7-52) 06/28/16 00:45 Alkaline Phosphatase 54 U/L (34-104) 06/28/16 00:45 Total Protein 7.3 gm/dL (6.0-8.3) 06/28/16 00:45 Albumin 3.5 gm/dL (3.7-5.3) L 06/28/16 00:45 Globulin 3.8 gm/dL 06/28/16 00:45 Albumin/Globulin Ratio 0.9 (1.0-1.8) L 06/28/16 00:45 - Physical Exam Vitals and I&O: Vital Signs Temp 97.4 F 06/28/16 11:45 Pulse 96 06/28/16 14:51 Resp 19 06/28/16 11:45 BP 124/61 06/28/16 14:51 Pulse Ox 97 06/28/16 11:45 Intake & Output 06/27/16 06/28/16 06/28/16 18:59 06:59 18:59 Intake Total 420 Balance 420 Weight (lbs) 99.79 kg Intake: Oral 420 Other: # Voids 1 # Bowel Movements 0 Active Medications: Current Medications Acetaminophen (Tylenol) 650 mg PO Q6H PRN PRN Reason: Pain or Fever >101 Stop: 08/27/16 10:03 Atenolol (Tenormin) 50 mg PO DAILY [facility] Stop: 08/28/16 08:59 Metronidazole (Flagyl) 500 mg in 100 mls @ 100 mls/hr IV Q8HR [facility] Stop: 08/27/16 12:59 Last Admin: 06/28/16 13:00 Dose: Not Given Vancomycin HCl 1.5 gm/ Sodium (Chloride) 500 mls @ 250 mls/hr IV Q12H [facility] Stop: 08/27/16 09:59 Last Admin: 06/28/16 15:16 Dose: 250 mls/hr Sodium Chloride (Nacl 0.9%) 1,000 mls @ 75 mls/hr IV .[id number] [facility] Stop: 08/27/16 09:59 Lactated Ringer's (Lactated Ringer) 1,000 mls @ 0 mls/hr IV .Q0M SHAYNE PRN Reason: TKO Stop: 06/29/16 12:44 Aztreonam 1 gm/ Dextrose 50 mls @ 100 mls/hr IV Q8HR [facility] Stop: 08/27/16 20:59 Insulin Aspart (Novolog Insulin Sliding Scale) 0 units SUBQ Q6HR [facility] PRN Reason: Protocol Stop: 08/27/16 11:59 Last Admin: 06/28/16 14:58 Dose: Not Given Lisinopril (Zestril) 20 mg PO BID [facility] Stop: 08/27/16 09:59 Last Admin: 06/28/16 14:51 Dose: Not Given Meperidine HCl (Demerol) 12.5 mg IVP UD PRN PRN Reason: POST-OP PAIN Stop: 06/29/16 12:40 Miscellaneous (Vancomycin Iv Per Pharmacy) 1 ea [facility] PRN PRN PRN Reason: PROTOCOL Stop: 08/27/16 07:20 Ondansetron HCl (Zofran) 4 mg IV Q6H PRN PRN Reason: Nausea / Vomiting Stop: 08/27/16 10:03 Pioglitazone HCl (Actos) 30 mg PO DAILY [facility] Stop: 08/27/16 09:59 Last Admin: 06/28/16 14:57 Dose: Not Given Simvastatin (Zocor) 10 mg PO HS [facility] Stop: 08/27/16 20:59 Tramadol HCl (Ultram) 50 mg PO Q4HR PRN PRN Reason: Pain (Severe) Stop: 08/27/16 09:57 General: Alert, Oriented x3, Cooperative, No acute distress HEENT: Atraumatic Neck: Supple Cardiovascular: Regular rate Lungs: Clear to auscultation Abdomen: Bowel sounds, Soft Extremities: Other (No edema) Neurological: Normal gait, Normal speech Skin: Other (Rednes and pain in perianal area. ) Psych/Mental Status: Mental status NL - Procedures Procedures: Procedures Procedure Code Date ANUS SURGERY PROCEDURE 32379 06/23/16 DESTRUC-SHOULDER LES NEC 80.81 11/08/01 DIAGNOSTIC SIGMOIDOSCOPY 38767 06/23/16 EXC SHOULDER EDGARDO DEEP < 5 [place] [address] 11/08/01 EXCISION OF HEMORRHOIDAL PLEXUS, OPEN APPROACH [id number] 06/23/16 INSPECTION OF LOWER INTESTINAL TRACT, ENDO [id number] 06/23/16 Assessment/Plan - Assessment Assessment: Patient is awake, alert, calm in no acute distress. Surgery already done. Dx: Perianal abcess, DM, HTN, Obesity. - Plan Plan: Patient in [facility], will continue to monitor
[2016-06-29] MEDS: metroNIDAZOLE 500mg/NS 100mL 500 MG/100 ML BAG IV SCH ×3 (05:11→21:44)
[2016-06-29] MEDS: INSULIN ASPART SLIDING SCALE 100 UNITS/ML UNIT SUBQ SCH ×3 (06:26→19:46)
[2016-06-29 06:56] LABS: % BASOPHILS 0.1 % (0.0-2.0); RED BLOOD COUNT 4.01 Mil/cmm (3.80-5.10); RED CELL DISTRIBUTION WIDTH 12.3 % (11.5-20.0)
[2016-06-29 07:16] LABS: ALB/GLOB RATIO 0.9 (1.0-1.8); ALKALINE PHOSPHATASE 46 U/L (34-104); ANION GAP 5.7 (7.0-16.0); BILIRUBIN,TOTAL 0.2 mg/dL (0.3-1.0); BUN - UREA NITROGEN 15 mg/dL (7-25); CALCIUM SERUM 8.4 mg/dL (8.6-10.3); CARBON DIOXIDE 24.4 mEq/L (21.0-31.0); CHLORIDE 109 mEq/L (98-107); CREATININE - SERUM 0.5 mg/dL (0.6-1.2); GLUCOSE 225 mg/dL (70-105); POTASSIUM SERUM 4.1 mEq/L (3.5-5.1); SGOT 8 U/L (13-39); SGPT/ALT 7 U/L (7-52); SODIUM SERUM 135 mEq/L (136-145)
[2016-06-29 07:24] LABS: % EOSINOPHILS 0.3 % (0.0-5.0); % LYMPHOCYTES 10.1 % (20.0-50.0); % MONOCYTES 5.7 % (2.0-10.0); % NEUTROPHILS 83.8 % (40.0-80.0); MEAN CELL VOLUME 87.9 fl (81-100); MEAN CORPUSCULAR HEMOGLOBIN 29.8 pg (27.0-31.0); MEAN CORPUSCULAR HGB CONC 33.9 pg (28.0-36.0); MEAN PLATELET VOLUME 8.3 fl; NEUTROPHILE ABSOLUTE 14.8 Th/cmm (1.8-8.0); PLATELET COUNT 255 Th/cmm (150-400)
[2016-06-29 07:27] LABS: HEMATOCRIT 35.3 % (35.0-45.0); WHITE BLOOD COUNT 17.7 Th/cmm (4.8-10.8)
--- NOTE | 2016-06-29 08:16 | General Progress Note ---
Subjective - Review of Systems Service Date: 06/29/16 Events since last encounter: start sitz bath bid remove iodoform gauze packing by RN Objective - Results Result Diagrams: 06/29/16 06:05 06/29/16 06:05 Recent Labs: Laboratory Last Values WBC 17.7 Th/cmm (4.8-10.8) H 06/29/16 06:05 RBC 4.01 Mil/cmm (3.80-5.10) 06/29/16 06:05 Hgb 12.0 gm/dL (11.7-15.5) 06/29/16 06:05 Hct 35.3 % (35.0-45.0) D 06/29/16 06:05 MCV 87.9 fl (81-100) 06/29/16 06:05 MCH 29.8 pg (27.0-31.0) 06/29/16 06:05 MCHC Differential 33.9 pg (28.0-36.0) 06/29/16 06:05 RDW 12.3 % (11.5-20.0) 06/29/16 06:05 Plt Count 255 Th/cmm (150-400) 06/29/16 06:05 MPV 8.3 fl 06/29/16 06:05 Neutrophils % 83.8 % (40.0-80.0) H 06/29/16 06:05 Lymphocytes % 10.1 % (20.0-50.0) L 06/29/16 06:05 Monocytes % 5.7 % (2.0-10.0) 06/29/16 06:05 Eosinophils % 0.3 % (0.0-5.0) 06/29/16 06:05 Basophils % 0.1 % (0.0-2.0) 06/29/16 06:05 PT 10.8 SECONDS (9.5-11.5) 06/28/16 00:45 INR 1.04 (0.5-1.4) 06/28/16 00:45 PTT (Actin FS) 26.8 SECONDS (26.0-38.0) 06/28/16 00:45 Sodium 135 mEq/L (136-145) L 06/29/16 06:05 Potassium 4.1 mEq/L (3.5-5.1) 06/29/16 06:05 Chloride 109 mEq/L (98-107) H 06/29/16 06:05 Carbon Dioxide 24.4 mEq/L (21.0-31.0) 06/29/16 06:05 Anion Gap 5.7 (7.0-16.0) L 06/29/16 06:05 BUN 15 mg/dL (7-25) 06/29/16 06:05 Creatinine 0.5 mg/dL (0.6-1.2) L 06/29/16 06:05 Est GFR ( Amer) > 60.0 ml/min (>90) 06/29/16 06:05 Est GFR (Non-Af Amer) > 60.0 ml/min 06/29/16 06:05 BUN/Creatinine Ratio 30.0 06/29/16 06:05 Glucose 225 mg/dL (70-105) H 06/29/16 06:05 POC Glucose 211 MG/DL (70 - 105) H 06/29/16 05:52 Whole Bld Lactic Acid 0.75 mmol/L (0.60-1.99) 06/28/16 00:45 Calcium 8.4 mg/dL (8.6-10.3) L 06/29/16 06:05 Total Bilirubin 0.2 mg/dL (0.3-1.0) L 06/29/16 06:05 AST 8 U/L (13-39) L 06/29/16 06:05 ALT 7 U/L (7-52) 06/29/16 06:05 Alkaline Phosphatase 46 U/L (34-104) 06/29/16 06:05 Total Protein 6.4 gm/dL (6.0-8.3) 06/29/16 06:05 Albumin 3.1 gm/dL (3.7-5.3) L 06/29/16 06:05 Globulin 3.3 gm/dL 06/29/16 06:05 Albumin/Globulin Ratio 0.9 (1.0-1.8) L 06/29/16 06:05 TSH 0.38 uIU/ml (0.34-5.60) 06/29/16 06:05 - Physical Exam Vitals and I&O: Vital Signs Temp 97.7 F 06/29/16 04:00 Pulse 66 06/29/16 04:00 Resp 20 06/29/16 04:00 BP 113/74 06/29/16 04:00 Pulse Ox 97 06/29/16 04:00 Intake & Output 06/28/16 06/29/16 06/29/16 18:59 06:59 18:59 Intake Total 500 1120 Balance 500 1120 Intake: Intake, IV Amount 500 700 Aztreonam 1 gm In 100 Dextrose 5% 50 ml @ 100 mls/hr IV Q8HR [facility] Rx#: [id number] Vancomycin HCl 1.5 gm In 500 500 Sodium Chloride 0.9% 500 ml @ 250 mls/hr IV Q12H [facility] Rx#:[id number] metroNIDAZOLE 500mg/NS 100 100mL 500 mg In 100 ml @ 100 mls/hr IV Q8HR [facility] Rx #:[id number] Oral 420 Other: # Voids 3 3 # Bowel Movements 0 0 Active Medications: Current Medications Acetaminophen (Tylenol) 650 mg PO Q6H PRN PRN Reason: Pain or Fever >101 Stop: 08/27/16 10:03 Last Admin: 06/28/16 21:10 Dose: 650 mg Atenolol (Tenormin) 50 mg PO DAILY [facility] Stop: 08/28/16 08:59 Metronidazole (Flagyl) 500 mg in 100 mls @ 100 mls/hr IV Q8HR [facility] Stop: 08/27/16 12:59 Last Admin: 06/29/16 05:11 Dose: 100 mls/hr Vancomycin HCl 1.5 gm/ Sodium (Chloride) 500 mls @ 250 mls/hr IV Q12H [facility] Stop: 08/27/16 09:59 Last Infusion: 06/29/16 00:45 Dose: Infused Sodium Chloride (Nacl 0.9%) 1,000 mls @ 75 mls/hr IV .[id number] [facility] Stop: 08/27/16 09:59 Last Admin: 06/28/16 21:22 Dose: 75 mls/hr Lactated Ringer's (Lactated Ringer) 1,000 mls @ 0 mls/hr IV .Q0M SHAYNE PRN Reason: TKO Stop: 06/29/16 12:44 Aztreonam 1 gm/ Dextrose 50 mls @ 100 mls/hr IV Q8HR [facility] Stop: 08/27/16 20:59 Last Infusion: 06/29/16 04:47 Dose: Infused Insulin Aspart (Novolog Insulin Sliding Scale) 0 units SUBQ Q6HR [facility] PRN Reason: Protocol Stop: 08/27/16 11:59 Last Admin: 06/29/16 06:26 Dose: 4 units Ketorolac Tromethamine (Toradol) 30 mg IVP Q6HR PRN PRN Reason: Pain (Severe) Stop: 08/27/16 15:54 Last Admin: 06/29/16 01:58 Dose: 30 mg Lisinopril (Zestril) 20 mg PO BID [facility] Stop: 08/27/16 09:59 Last Admin: 06/28/16 14:51 Dose: Not Given Meperidine HCl (Demerol) 12.5 mg IVP UD PRN PRN Reason: POST-OP PAIN Stop: 06/29/16 12:40 Miscellaneous (Vancomycin Iv Per Pharmacy) 1 ea [facility] PRN PRN PRN Reason: PROTOCOL Stop: 08/27/16 07:20 Ondansetron HCl (Zofran) 4 mg IV Q6H PRN PRN Reason: Nausea / Vomiting Stop: 08/27/16 10:03 Pioglitazone HCl (Actos) 30 mg PO DAILY [facility] Stop: 08/27/16 09:59 Last Admin: 06/28/16 14:57 Dose: Not Given Simvastatin (Zocor) 10 mg PO HS [facility] Stop: 08/27/16 20:59 Last Admin: 06/28/16 21:21 Dose: 10 mg Tramadol HCl (Ultram) 50 mg PO Q4HR PRN PRN Reason: Pain (Severe) Stop: 08/27/16 09:57 - Procedures Procedures: Procedures Procedure Code Date ANUS SURGERY PROCEDURE 61063 06/23/16 DESTRUC-SHOULDER LES NEC 80.81 11/08/01 DIAGNOSTIC SIGMOIDOSCOPY 37400 06/23/16 EXC SHOULDER EDGARDO DEEP < 5 CM 85292 11/08/01 EXCISION OF HEMORRHOIDAL PLEXUS, OPEN APPROACH [id number] 06/23/16 INSPECTION OF LOWER INTESTINAL TRACT, ENDO [id number] 06/23/16
--- NOTE | 2016-06-29 08:53 | General Progress Note ---
Subjective - Review of Systems Service Date: 06/29/17 Subjective: Pain is less Objective - Results Result Diagrams: 06/29/16 06:05 06/29/16 06:05 Recent Labs: Laboratory Last Values WBC 17.7 Th/cmm (4.8-10.8) H 06/29/16 06:05 RBC 4.01 Mil/cmm (3.80-5.10) 06/29/16 06:05 Hgb 12.0 gm/dL (11.7-15.5) 06/29/16 06:05 Hct 35.3 % (35.0-45.0) D 06/29/16 06:05 MCV 87.9 fl (81-100) 06/29/16 06:05 MCH 29.8 pg (27.0-31.0) 06/29/16 06:05 MCHC Differential 33.9 pg (28.0-36.0) 06/29/16 06:05 RDW 12.3 % (11.5-20.0) 06/29/16 06:05 Plt Count 255 Th/cmm (150-400) 06/29/16 06:05 MPV 8.3 fl 06/29/16 06:05 Neutrophils % 83.8 % (40.0-80.0) H 06/29/16 06:05 Lymphocytes % 10.1 % (20.0-50.0) L 06/29/16 06:05 Monocytes % 5.7 % (2.0-10.0) 06/29/16 06:05 Eosinophils % 0.3 % (0.0-5.0) 06/29/16 06:05 Basophils % 0.1 % (0.0-2.0) 06/29/16 06:05 PT 10.8 SECONDS (9.5-11.5) 06/28/16 00:45 INR 1.04 (0.5-1.4) 06/28/16 00:45 PTT (Actin FS) 26.8 SECONDS (26.0-38.0) 06/28/16 00:45 Sodium 135 mEq/L (136-145) L 06/29/16 06:05 Potassium 4.1 mEq/L (3.5-5.1) 06/29/16 06:05 Chloride 109 mEq/L (98-107) H 06/29/16 06:05 Carbon Dioxide 24.4 mEq/L (21.0-31.0) 06/29/16 06:05 Anion Gap 5.7 (7.0-16.0) L 06/29/16 06:05 BUN 15 mg/dL (7-25) 06/29/16 06:05 Creatinine 0.5 mg/dL (0.6-1.2) L 06/29/16 06:05 Est GFR ( Amer) > 60.0 ml/min (>90) 06/29/16 06:05 Est GFR (Non-Af Amer) > 60.0 ml/min 06/29/16 06:05 BUN/Creatinine Ratio 30.0 06/29/16 06:05 Glucose 225 mg/dL (70-105) H 06/29/16 06:05 POC Glucose 211 MG/DL (70 - 105) H 06/29/16 05:52 Whole Bld Lactic Acid 0.75 mmol/L (0.60-1.99) 06/28/16 00:45 Calcium 8.4 mg/dL (8.6-10.3) L 06/29/16 06:05 Total Bilirubin 0.2 mg/dL (0.3-1.0) L 06/29/16 06:05 AST 8 U/L (13-39) L 06/29/16 06:05 ALT 7 U/L (7-52) 06/29/16 06:05 Alkaline Phosphatase 46 U/L (34-104) 06/29/16 06:05 Total Protein 6.4 gm/dL (6.0-8.3) 06/29/16 06:05 Albumin 3.1 gm/dL (3.7-5.3) L 06/29/16 06:05 Globulin 3.3 gm/dL 06/29/16 06:05 Albumin/Globulin Ratio 0.9 (1.0-1.8) L 06/29/16 06:05 TSH 0.38 uIU/ml (0.34-5.60) 06/29/16 06:05 - Physical Exam Vitals and I&O: Vital Signs Temp 97.7 F 06/29/16 04:00 Pulse 69 06/29/16 08:19 Resp 20 06/29/16 04:00 BP 125/69 04/17/17 08:19 Pulse Ox 97 06/29/16 04:00 Intake & Output 06/28/16 06/29/16 06/29/16 18:59 06:59 18:59 Intake Total 500 1120 Balance 500 1120 Intake: Intake, IV Amount 500 700 Aztreonam 1 gm In 100 Dextrose 5% 50 ml @ 100 mls/hr IV Q8HR [facility] Rx#: [id number] Vancomycin HCl 1.5 gm In 500 500 Sodium Chloride 0.9% 500 ml @ 250 mls/hr IV Q12H [facility] Rx#:[id number] metroNIDAZOLE 500mg/NS 100 100mL 500 mg In 100 ml @ 100 mls/hr IV Q8HR [facility] Rx #:[id number] Oral 420 Other: # Voids 3 3 # Bowel Movements 0 0 Active Medications: Current Medications Acetaminophen (Tylenol) 650 mg PO Q6H PRN PRN Reason: Pain or Fever >101 Stop: 08/27/16 10:03 Last Admin: 06/28/16 21:10 Dose: 650 mg Atenolol (Tenormin) 50 mg PO DAILY [facility] Stop: 08/28/16 08:59 Last Admin: 06/29/16 08:19 Dose: 50 mg Metronidazole (Flagyl) 500 mg in 100 mls @ 100 mls/hr IV Q8HR [facility] Stop: 08/27/16 12:59 Last Admin: 06/29/16 05:11 Dose: 100 mls/hr Vancomycin HCl 1.5 gm/ Sodium (Chloride) 500 mls @ 250 mls/hr IV Q12H [facility] Stop: 08/27/16 09:59 Last Infusion: 06/29/16 00:45 Dose: Infused Sodium Chloride (Nacl 0.9%) 1,000 mls @ 75 mls/hr IV .[id number] [facility] Stop: 08/27/16 09:59 Last Admin: 06/28/16 21:22 Dose: 75 mls/hr Lactated Ringer's (Lactated Ringer) 1,000 mls @ 0 mls/hr IV .Q0M SHAYNE PRN Reason: TKO Stop: 06/29/16 12:44 Aztreonam 1 gm/ Dextrose 50 mls @ 100 mls/hr IV Q8HR [facility] Stop: 08/27/16 20:59 Last Infusion: 06/29/16 04:47 Dose: Infused Insulin Aspart (Novolog Insulin Sliding Scale) 0 units SUBQ Q6HR [facility] PRN Reason: Protocol Stop: 08/27/16 11:59 Last Admin: 06/29/16 06:26 Dose: 4 units Ketorolac Tromethamine (Toradol) 30 mg IVP Q6HR PRN PRN Reason: Pain (Severe) Stop: 08/27/16 15:54 Last Admin: 06/29/16 01:58 Dose: 30 mg Lisinopril (Zestril) 20 mg PO BID [facility] Stop: 08/27/16 09:59 Last Admin: 06/29/16 08:19 Dose: 20 mg Meperidine HCl (Demerol) 12.5 mg IVP UD PRN PRN Reason: POST-OP PAIN Stop: 06/29/16 12:40 Miscellaneous (Vancomycin Iv Per Pharmacy) 1 ea [facility] PRN PRN PRN Reason: PROTOCOL Stop: 08/27/16 07:20 Ondansetron HCl (Zofran) 4 mg IV Q6H PRN PRN Reason: Nausea / Vomiting Stop: 08/27/16 10:03 Pioglitazone HCl (Actos) 30 mg PO DAILY [facility] Stop: 08/27/16 09:59 Last Admin: 06/29/16 08:19 Dose: 30 mg Simvastatin (Zocor) 10 mg PO HS [facility] Stop: 08/27/16 20:59 Last Admin: 06/28/16 21:21 Dose: 10 mg Tramadol HCl (Ultram) 50 mg PO Q4HR PRN PRN Reason: Pain (Severe) Stop: 08/27/16 09:57 General: Alert, Oriented x3, Cooperative, No acute distress, Moderate distress Neck: Supple Cardiovascular: Regular rate Lungs: Clear to auscultation Abdomen: Bowel sounds, Soft Extremities: Other (No edema) Neurological: Normal gait Skin: Other (Warm and dry) Psych/Mental Status: Mental status NL - Procedures Procedures: Procedures Procedure Code Date ANUS SURGERY PROCEDURE 99231 06/23/16 DESTRUC-SHOULDER LES NEC 80.81 11/08/01 DIAGNOSTIC SIGMOIDOSCOPY 71912 06/23/16 EXC SHOULDER EDGARDO DEEP < 5 CM 83622 11/08/01 EXCISION OF HEMORRHOIDAL PLEXUS, OPEN APPROACH [id number] 06/23/16 INSPECTION OF LOWER INTESTINAL TRACT, ENDO [id number] 06/23/16 Assessment/Plan - Assessment Assessment: Patient is awake, alert, calm in no acute distress. WBC increased today. Dx: Perianal abcess, DM, HTN, Obesity. - Plan Plan: [facility], will continue to monitor.
[2016-06-29] MEDS: Vancomycin HCl 1.75 GM in Sodium Chloride 0.9% 500 ML IV SCH ×2 (10:16→22:47)
--- NOTE | 2016-06-29 13:54 | Consultation ---
DATE OF CONSULTATION: 06/28/2016 REFERRING PHYSICIAN: Dr. Osbaldo Porter. REASON FOR CONSULTATION: Perianal abscess. HISTORY OF PRESENT ILLNESS: The patient is 51-year-old female with past medical history of diabetes mellitus type 2, hypertension and dyslipidemia, followed by her primary care physician for her constipation and rectal pain during defection. 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 So she was admitted to this hospital on 06/23/2016, for further management. Dr. Mccartney was called and found no evidence of an abscess, so he performed hemorrhoidectomy. The patient was discharged on Levaquin and Flagyl on 06/25/2016. She comes back again on 06/27/2016, for constant, aching worsening severe pain, /10, radiating to the left gluteal area to the vaginal area. Pelvic CT scan was performed and it had revealed left perianal abscess. The patient was started on vancomycin and Flagyl. ID consult was called for further antibiotic management. PAST MEDICAL HISTORY: Includes diabetes mellitus type 2, hypertension and dyslipidemia. ALLERGIES: THE PATIENT IS ALLERGIC TO PENICILLIN, but stated that she can tolerate Keflex probably. Not sure about that. MEDICATIONS: As per medication reconciliation sheet. Antibiotic nixon, the patient was taking Levaquin and Flagyl with no help. SOCIAL HISTORY: The patient lives at home. Denies any smoking, alcohol or drug use. PAST SURGICAL HISTORY: None significant. PSYCHIATRIC HISTORY: None. FAMILY HISTORY: None significant. REVIEW OF SYSTEMS: GENERAL: The patient has no fever, no chills. HEENT: No diplopia, no photophobia, no sore throat. RESPIRATORY: No cough, no shortness of breath. CARDIOVASCULAR: No chest pain or palpitation. No leg swelling. GASTROINTESTINAL: The patient has no nausea, no vomiting, no diarrhea, no constipation. Although, the patient has tenesmus. The patient also had history of bleeding per rectum. GENITOURINARY: The patient had no dysuria and no hematuria. CENTRAL NERVOUS SYSTEM: No headache, no dizziness, no focal weakness. PHYSICAL EXAMINATION: CURRENT VITAL SIGNS: Shows temperature is 97.4, pulse 76, respirations 19 and blood pressure is 124/61. GENERAL: The patient is comfortable lying in the bed, not in acute distress. HEENT: Head is normocephalic and atraumatic. Oral cavity moist. [place] tongue. Eyes: No pallor, no icterus. Pupils PERRLA, EOMI. NECK: Supple, no JVD, no carotid bruit. Trachea in midline. CHEST: Bilateral breath sounds. No crackles or wheezing. CARDIOVASCULAR: S1 and S2 within normal limits. Regular rhythm. No murmur and no gallop. ABDOMEN: Soft, nontender and nondistended. Bowel sounds are present. In left perianal area. I and D wound. EXTREMITIES: No cyanosis, no clubbing, no edema. NEUROLOGIC: Alert, awake, oriented x 3. No focal neurodeficit. LABORATORY DATA: Lab nixon, WBC count 15,500, hemoglobin 13.3, hematocrit 39.7, platelets are 269,000 and neutrophils 77.4%. Sodium 135, potassium 3.5, chloride 103, bicarbonate is 26, BUN is 10, creatinine 0.5 and glucose is 110. IMPRESSION: 1. Left perianal abscess. 2. Leukocytosis, suspect sepsis. 3. Diabetes mellitus, type 2. 4. Hypertension. 5. Hyperlipidemia. RECOMMENDATIONS: We will continue vancomycin and Flagyl and Azactam. Wound care. Thank you, Dr. Porter for involving me in taking care of this patient. [facility]# [id number] [facility]
[2016-06-30] MEDS: INSULIN ASPART SLIDING SCALE 100 UNITS/ML UNIT SUBQ SCH ×4 (01:00→17:11)
[2016-06-30] MEDS: metroNIDAZOLE 500mg/NS 100mL 500 MG/100 ML BAG IV SCH ×3 (05:54→21:02)
[2016-06-30 05:59] LABS: % BASOPHILS 0.3 % (0.0-2.0); % EOSINOPHILS 0.7 % (0.0-5.0); % LYMPHOCYTES 32.8 % (20.0-50.0); % MONOCYTES 6.7 % (2.0-10.0); % NEUTROPHILS 59.5 % (40.0-80.0); HEMATOCRIT 32.5 % (35.0-45.0); HEMOGLOBIN 11.3 gm/dL (11.7-15.5); MEAN CELL VOLUME 86.7 fl (81-100); MEAN CORPUSCULAR HEMOGLOBIN 30.2 pg (27.0-31.0); MEAN CORPUSCULAR HGB CONC 34.8 pg (28.0-36.0); MEAN PLATELET VOLUME 8.4 fl; NEUTROPHILE ABSOLUTE 6.9 Th/cmm (1.8-8.0); PLATELET COUNT 246 Th/cmm (150-400); RED BLOOD COUNT 3.75 Mil/cmm (3.80-5.10); RED CELL DISTRIBUTION WIDTH 12.5 % (11.5-20.0); WHITE BLOOD COUNT 11.6 Th/cmm (4.8-10.8)
[2016-06-30 06:07] LABS: ALKALINE PHOSPHATASE 43 U/L (34-104); BILIRUBIN,TOTAL 0.2 mg/dL (0.3-1.0); BUN - UREA NITROGEN 18 mg/dL (7-25); CALCIUM SERUM 8.1 mg/dL (8.6-10.3); CHLORIDE 110 mEq/L (98-107); CREATININE - SERUM 0.6 mg/dL (0.6-1.2); GLUCOSE 127 mg/dL (70-105); SGOT 10 U/L (13-39); SGPT/ALT 10 U/L (7-52); SODIUM SERUM 137 mEq/L (136-145)
--- NOTE | 2016-06-30 08:24 | General Progress Note ---
Subjective - Review of Systems Service Date: 06/30/16 Subjective: Pain is less Objective - Results Result Diagrams: 06/30/16 04:58 06/30/16 04:58 Recent Labs: Laboratory Last Values WBC 11.6 Th/cmm (4.8-10.8) H D 06/30/16 04:58 RBC 3.75 Mil/cmm (3.80-5.10) L 06/30/16 04:58 Hgb 11.3 gm/dL (11.7-15.5) L 06/30/16 04:58 Hct 32.5 % (35.0-45.0) L 06/30/16 04:58 MCV 86.7 fl (81-100) 06/30/16 04:58 MCH 30.2 pg (27.0-31.0) 06/30/16 04:58 MCHC Differential 34.8 pg (28.0-36.0) 06/30/16 04:58 RDW 12.5 % (11.5-20.0) 06/30/16 04:58 Plt Count 246 Th/cmm (150-400) 06/30/16 04:58 MPV 8.4 fl 06/30/16 04:58 Neutrophils % 59.5 % (40.0-80.0) 06/30/16 04:58 Lymphocytes % 32.8 % (20.0-50.0) 06/30/16 04:58 Monocytes % 6.7 % (2.0-10.0) 06/30/16 04:58 Eosinophils % 0.7 % (0.0-5.0) 06/30/16 04:58 Basophils % 0.3 % (0.0-2.0) 06/30/16 04:58 PT 10.8 SECONDS (9.5-11.5) 06/28/16 00:45 INR 1.04 (0.5-1.4) 06/28/16 00:45 PTT (Actin FS) 26.8 SECONDS (26.0-38.0) 06/28/16 00:45 Sodium 137 mEq/L (136-145) 06/30/16 04:58 Potassium 4.0 mEq/L (3.5-5.1) 06/30/16 04:58 Chloride 110 mEq/L (98-107) H 06/30/16 04:58 Carbon Dioxide 23.0 mEq/L (21.0-31.0) 06/30/16 04:58 Anion Gap 8.0 (7.0-16.0) 06/30/16 04:58 BUN 18 mg/dL (7-25) 06/30/16 04:58 Creatinine 0.6 mg/dL (0.6-1.2) 06/30/16 04:58 Est GFR ( Amer) > 60.0 ml/min (>90) 06/30/16 04:58 Est GFR (Non-Af Amer) > 60.0 ml/min 06/30/16 04:58 BUN/Creatinine Ratio 30.0 06/30/16 04:58 Glucose 127 mg/dL (70-105) H 06/30/16 04:58 POC Glucose 130 MG/DL (70 - 105) H 06/30/16 06:01 Whole Bld Lactic Acid 0.75 mmol/L (0.60-1.99) 06/28/16 00:45 Calcium 8.1 mg/dL (8.6-10.3) L 06/30/16 04:58 Total Bilirubin 0.2 mg/dL (0.3-1.0) L 06/30/16 04:58 AST 10 U/L (13-39) L 06/30/16 04:58 ALT 10 U/L (7-52) 06/30/16 04:58 Alkaline Phosphatase 43 U/L (34-104) 06/30/16 04:58 Total Protein 5.9 gm/dL (6.0-8.3) L 06/30/16 04:58 Albumin 3.0 gm/dL (3.7-5.3) L 06/30/16 04:58 Globulin 2.9 gm/dL 06/30/16 04:58 Albumin/Globulin Ratio 1.0 (1.0-1.8) 06/30/16 04:58 TSH 0.38 uIU/ml (0.34-5.60) 06/29/16 06:05 Vancomycin Trough 12.1 ug/mL (10-20) 06/29/16 09:00 Random Vancomycin 24.5 ug/mL (5.0-40.0) 06/30/16 04:58 - Physical Exam Vitals and I&O: Vital Signs Temp 98.0 F 06/30/16 08:00 Pulse 63 06/30/16 08:00 Resp 18 06/30/16 08:00 BP 110/60 06/30/16 08:00 Pulse Ox 99 06/30/16 08:00 Intake & Output 06/29/16 06/30/16 06/30/16 18:59 06:59 18:59 Intake Total 1150 800 Balance 1150 800 Intake: Intake, IV Amount 650 700 Aztreonam 1 gm In 50 100 Dextrose 5% 50 ml @ 100 mls/hr IV Q8HR [facility] Rx#: [id number] Vancomycin HCl 1.75 gm In 500 500 Sodium Chloride 0.9% 500 ml @ 250 mls/hr IV Q12H [facility] Rx#:[id number] metroNIDAZOLE 500mg/NS 100 100 100mL 500 mg In 100 ml @ 100 mls/hr IV Q8HR [facility] Rx #:[id number] Oral 500 100 Other: # Voids 3 2 # Bowel Movements 1 Active Medications: Current Medications Acetaminophen (Tylenol) 650 mg PO Q6H PRN PRN Reason: Pain or Fever >101 Stop: 08/27/16 10:03 Last Admin: 06/28/16 21:10 Dose: 650 mg Atenolol (Tenormin) 50 mg PO DAILY [facility] Stop: 08/28/16 08:59 Last Admin: 06/29/16 08:19 Dose: 50 mg Metronidazole (Flagyl) 500 mg in 100 mls @ 100 mls/hr IV Q8HR [facility] Stop: 08/27/16 12:59 Last Admin: 06/30/16 05:54 Dose: 100 mls/hr Sodium Chloride (Nacl 0.9%) 1,000 mls @ 75 mls/hr IV .[id number] [facility] Stop: 08/27/16 09:59 Last Admin: 06/28/16 21:22 Dose: 75 mls/hr Aztreonam 1 gm/ Dextrose 50 mls @ 100 mls/hr IV Q8HR [facility] Stop: 08/27/16 20:59 Last Infusion: 06/30/16 05:51 Dose: Infused Vancomycin HCl 1.75 gm/ Sodium (Chloride) 500 mls @ 250 mls/hr IV Q12H [facility] Stop: 08/28/16 09:59 Last Infusion: 06/30/16 00:47 Dose: Infused Insulin Aspart (Novolog Insulin Sliding Scale) 0 units SUBQ Q6HR [facility] PRN Reason: Protocol Stop: 08/27/16 11:59 Last Admin: 06/30/16 06:11 Dose: Not Given Ketorolac Tromethamine (Toradol) 30 mg IVP Q6HR PRN PRN Reason: Pain (Severe) Stop: 08/27/16 15:54 Last Admin: 06/30/16 02:10 Dose: 30 mg Lisinopril (Zestril) 20 mg PO BID [facility] Stop: 08/27/16 09:59 Last Admin: 06/29/16 16:43 Dose: Not Given Miscellaneous (Vancomycin Iv Per Pharmacy) 1 ea [facility] PRN PRN PRN Reason: PROTOCOL Stop: 08/27/16 07:20 Ondansetron HCl (Zofran) 4 mg IV Q6H PRN PRN Reason: Nausea / Vomiting Stop: 08/27/16 10:03 Pioglitazone HCl (Actos) 30 mg PO DAILY [facility] Stop: 08/27/16 09:59 Last Admin: 06/29/16 08:19 Dose: 30 mg Simvastatin (Zocor) 10 mg PO HS [facility] Stop: 08/27/16 20:59 Last Admin: 06/29/16 21:00 Dose: 10 mg Tramadol HCl (Ultram) 50 mg PO Q4HR PRN PRN Reason: Pain (Severe) Stop: 08/27/16 09:57 Zolpidem Tartrate (Ambien) 5 mg PO HS PRN PRN Reason: Insomnia Stop: 08/28/16 17:35 Last Admin: 06/29/16 21:00 Dose: 5 mg General: Alert, Oriented x3, Cooperative, No acute distress HEENT: Atraumatic Neck: Supple Cardiovascular: Regular rate Lungs: Clear to auscultation Abdomen: Bowel sounds Extremities: Other (No edema) Neurological: Normal gait Skin: Other (There is a packing wound in left perianal area) Psych/Mental Status: Mental status NL - Procedures Procedures: Procedures Procedure Code Date ANUS SURGERY PROCEDURE 06398 06/23/16 DESTRUC-SHOULDER LES NEC 80.81 11/08/01 DIAGNOSTIC SIGMOIDOSCOPY 39461 06/23/16 DRAINAGE OF ANUS, OPEN APPROACH [id number] 06/28/16 EXC SHOULDER EDGARDO DEEP < 5 CM [address]3818 11/08/01 EXCISION OF HEMORRHOIDAL PLEXUS, OPEN APPROACH [id number] 06/23/16 INCISION OF ANAL ABSCESS 28243 06/28/16 INSPECTION OF LOWER INTESTINAL TRACT, ENDO [id number] 06/23/16 Assessment/Plan - Assessment Assessment: Patient is awake, alert, calm in no acute distress. WBC improved. Dx: Perianal abcess, DM, HTN, Obesity. - Plan Plan: Patient in vanco and flagyl, will continue to monitor. Consult with supervisor case loading request.
--- NOTE | 2016-06-30 09:40 | General Progress Note ---
Subjective - Review of Systems Service Date: 06/30/16 Events since last encounter: WBC 11,000 may DC with sitz bath and oral antibiotics Objective - Results Result Diagrams: 06/30/16 04:58 06/30/16 04:58 Recent Labs: Laboratory Last Values WBC 11.6 Th/cmm (4.8-10.8) H D 06/30/16 04:58 RBC 3.75 Mil/cmm (3.80-5.10) L 06/30/16 04:58 Hgb 11.3 gm/dL (11.7-15.5) L 06/30/16 04:58 Hct 32.5 % (35.0-45.0) L 06/30/16 04:58 MCV 86.7 fl (81-100) 06/30/16 04:58 MCH 30.2 pg (27.0-31.0) 06/30/16 04:58 MCHC Differential 34.8 pg (28.0-36.0) 06/30/16 04:58 RDW 12.5 % (11.5-20.0) 06/30/16 04:58 Plt Count 246 Th/cmm (150-400) 06/30/16 04:58 MPV 8.4 fl 06/30/16 04:58 Neutrophils % 59.5 % (40.0-80.0) 06/30/16 04:58 Lymphocytes % 32.8 % (20.0-50.0) 06/30/16 04:58 Monocytes % 6.7 % (2.0-10.0) 06/30/16 04:58 Eosinophils % 0.7 % (0.0-5.0) 06/30/16 04:58 Basophils % 0.3 % (0.0-2.0) 06/30/16 04:58 PT 10.8 SECONDS (9.5-11.5) 06/28/16 00:45 INR 1.04 (0.5-1.4) 06/28/16 00:45 PTT (Actin FS) 26.8 SECONDS (26.0-38.0) 06/28/16 00:45 Sodium 137 mEq/L (136-145) 06/30/16 04:58 Potassium 4.0 mEq/L (3.5-5.1) 06/30/16 04:58 Chloride 110 mEq/L (98-107) H 06/30/16 04:58 Carbon Dioxide 23.0 mEq/L (21.0-31.0) 06/30/16 04:58 Anion Gap 8.0 (7.0-16.0) 06/30/16 04:58 BUN 18 mg/dL (7-25) 06/30/16 04:58 Creatinine 0.6 mg/dL (0.6-1.2) 06/30/16 04:58 Est GFR ( Amer) > 60.0 ml/min (>90) 06/30/16 04:58 Est GFR (Non-Af Amer) > 60.0 ml/min 06/30/16 04:58 BUN/Creatinine Ratio 30.0 06/30/16 04:58 Glucose 127 mg/dL (70-105) H 06/30/16 04:58 POC Glucose 130 MG/DL (70 - 105) H 06/30/16 06:01 Whole Bld Lactic Acid 0.75 mmol/L (0.60-1.99) 06/28/16 00:45 Calcium 8.1 mg/dL (8.6-10.3) L 06/30/16 04:58 Total Bilirubin 0.2 mg/dL (0.3-1.0) L 06/30/16 04:58 AST 10 U/L (13-39) L 06/30/16 04:58 ALT 10 U/L (7-52) 06/30/16 04:58 Alkaline Phosphatase 43 U/L (34-104) 06/30/16 04:58 Total Protein 5.9 gm/dL (6.0-8.3) L 06/30/16 04:58 Albumin 3.0 gm/dL (3.7-5.3) L 06/30/16 04:58 Globulin 2.9 gm/dL 06/30/16 04:58 Albumin/Globulin Ratio 1.0 (1.0-1.8) 06/30/16 04:58 TSH 0.38 uIU/ml (0.34-5.60) 06/29/16 06:05 Vancomycin Trough 12.1 ug/mL (10-20) 06/29/16 09:00 Random Vancomycin 24.5 ug/mL (5.0-40.0) 06/30/16 04:58 - Physical Exam Vitals and I&O: Vital Signs Temp 98.0 F 06/30/16 08:00 Pulse 62 06/30/16 09:08 Resp 18 06/30/16 08:00 BP 110/60 06/30/16 09:08 Pulse Ox 99 06/30/16 08:00 Intake & Output 06/29/16 06/30/16 06/30/16 18:59 06:59 18:59 Intake Total 1150 800 Balance 1150 800 Intake: Intake, IV Amount 650 700 Aztreonam 1 gm In 50 100 Dextrose 5% 50 ml @ 100 mls/hr IV Q8HR [facility] Rx#: [id number] Vancomycin HCl 1.75 gm In 500 500 Sodium Chloride 0.9% 500 ml @ 250 mls/hr IV Q12H [facility] Rx#:[id number] metroNIDAZOLE 500mg/NS 100 100 100mL 500 mg In 100 ml @ 100 mls/hr IV Q8HR [facility] Rx #:[id number] Oral 500 100 Other: # Voids 3 2 # Bowel Movements 1 Active Medications: Current Medications Acetaminophen (Tylenol) 650 mg PO Q6H PRN PRN Reason: Pain or Fever >101 Stop: 08/27/16 10:03 Last Admin: 06/28/16 21:10 Dose: 650 mg Atenolol (Tenormin) 50 mg PO DAILY [facility] Stop: 08/28/16 08:59 Last Admin: 06/30/16 09:08 Dose: Not Given Metronidazole (Flagyl) 500 mg in 100 mls @ 100 mls/hr IV Q8HR [facility] Stop: 08/27/16 12:59 Last Admin: 06/30/16 05:54 Dose: 100 mls/hr Sodium Chloride (Nacl 0.9%) 1,000 mls @ 75 mls/hr IV .[id number] [facility] Stop: 08/27/16 09:59 Last Admin: 06/28/16 21:22 Dose: 75 mls/hr Aztreonam 1 gm/ Dextrose 50 mls @ 100 mls/hr IV Q8HR [facility] Stop: 08/27/16 20:59 Last Infusion: 06/30/16 05:51 Dose: Infused Vancomycin HCl 1.75 gm/ Sodium (Chloride) 500 mls @ 250 mls/hr IV Q12H [facility] Stop: 08/28/16 09:59 Last Infusion: 06/30/16 00:47 Dose: Infused Insulin Aspart (Novolog Insulin Sliding Scale) 0 units SUBQ Q6HR [facility] PRN Reason: Protocol Stop: 08/27/16 11:59 Last Admin: 06/30/16 06:11 Dose: Not Given Ketorolac Tromethamine (Toradol) 30 mg IVP Q6HR PRN PRN Reason: Pain (Severe) Stop: 08/27/16 15:54 Last Admin: 06/30/16 02:10 Dose: 30 mg Lisinopril (Zestril) 20 mg PO BID [facility] Stop: 08/27/16 09:59 Last Admin: 06/30/16 09:08 Dose: 20 mg Miscellaneous (Vancomycin Iv Per Pharmacy) 1 ea [facility] PRN PRN PRN Reason: PROTOCOL Stop: 08/27/16 07:20 Ondansetron HCl (Zofran) 4 mg IV Q6H PRN PRN Reason: Nausea / Vomiting Stop: 08/27/16 10:03 Pioglitazone HCl (Actos) 30 mg PO DAILY [facility] Stop: 08/27/16 09:59 Last Admin: 06/30/16 09:07 Dose: 30 mg Simvastatin (Zocor) 10 mg PO HS [facility] Stop: 08/27/16 20:59 Last Admin: 06/29/16 21:00 Dose: 10 mg Tramadol HCl (Ultram) 50 mg PO Q4HR PRN PRN Reason: Pain (Severe) Stop: 08/27/16 09:57 Zolpidem Tartrate (Ambien) 5 mg PO HS PRN PRN Reason: Insomnia Stop: 08/28/16 17:35 Last Admin: 06/29/16 21:00 Dose: 5 mg - Procedures Procedures: Procedures Procedure Code Date ANUS SURGERY PROCEDURE 64009 06/23/16 DESTRUC-SHOULDER LES NEC 80.81 11/08/01 DIAGNOSTIC SIGMOIDOSCOPY 29806 06/23/16 DRAINAGE OF ANUS, OPEN APPROACH [id number] 06/28/16 EXC SHOULDER EDGARDO DEEP < 5 CM 87782 11/08/01 EXCISION OF HEMORRHOIDAL PLEXUS, OPEN APPROACH [id number] 06/23/16 INCISION OF ANAL ABSCESS 20574 06/28/16 INSPECTION OF LOWER INTESTINAL TRACT, ENDO [id number] 06/23/16
[2016-06-30] MEDS: Vancomycin HCl 1.75 GM in Sodium Chloride 0.9% 500 ML IV SCH (10:30)
--- NOTE | 2016-06-30 18:19 | Infectious Disease Prog Note ---
Infectious Disease Subjective - Review of Systems Service Date: 06/30/16 Subjective: There is no new change, there is no fever. Infectious Disease Objective - Results Result Diagrams: 06/30/16 04:58 06/30/16 04:58 Recent Labs: Laboratory Last Values WBC 11.6 Th/cmm (4.8-10.8) H D 06/30/16 04:58 RBC 3.75 Mil/cmm (3.80-5.10) L 06/30/16 04:58 Hgb 11.3 gm/dL (11.7-15.5) L 06/30/16 04:58 Hct 32.5 % (35.0-45.0) L 06/30/16 04:58 MCV 86.7 fl (81-100) 06/30/16 04:58 MCH 30.2 pg (27.0-31.0) 06/30/16 04:58 MCHC Differential 34.8 pg (28.0-36.0) 06/30/16 04:58 RDW 12.5 % (11.5-20.0) 06/30/16 04:58 Plt Count 246 Th/cmm (150-400) 06/30/16 04:58 MPV 8.4 fl 06/30/16 04:58 Neutrophils % 59.5 % (40.0-80.0) 06/30/16 04:58 Lymphocytes % 32.8 % (20.0-50.0) 06/30/16 04:58 Monocytes % 6.7 % (2.0-10.0) 06/30/16 04:58 Eosinophils % 0.7 % (0.0-5.0) 06/30/16 04:58 Basophils % 0.3 % (0.0-2.0) 06/30/16 04:58 PT 10.8 SECONDS (9.5-11.5) 06/28/16 00:45 INR 1.04 (0.5-1.4) 06/28/16 00:45 PTT (Actin FS) 26.8 SECONDS (26.0-38.0) 06/28/16 00:45 Sodium 137 mEq/L (136-145) 06/30/16 04:58 Potassium 4.0 mEq/L (3.5-5.1) 06/30/16 04:58 Chloride 110 mEq/L (98-107) H 06/30/16 04:58 Carbon Dioxide 23.0 mEq/L (21.0-31.0) 06/30/16 04:58 Anion Gap 8.0 (7.0-16.0) 06/30/16 04:58 BUN 18 mg/dL (7-25) 06/30/16 04:58 Creatinine 0.6 mg/dL (0.6-1.2) 06/30/16 04:58 Est GFR ( Amer) > 60.0 ml/min (>90) 06/30/16 04:58 Est GFR (Non-Af Amer) > 60.0 ml/min 06/30/16 04:58 BUN/Creatinine Ratio 30.0 06/30/16 04:58 Glucose 127 mg/dL (70-105) H 06/30/16 04:58 POC Glucose 99 MG/DL (70 - 105) 06/30/16 17:08 Whole Bld Lactic Acid 0.75 mmol/L (0.60-1.99) 06/28/16 00:45 Calcium 8.1 mg/dL (8.6-10.3) L 06/30/16 04:58 Total Bilirubin 0.2 mg/dL (0.3-1.0) L 06/30/16 04:58 AST 10 U/L (13-39) L 06/30/16 04:58 ALT 10 U/L (7-52) 06/30/16 04:58 Alkaline Phosphatase 43 U/L (34-104) 06/30/16 04:58 Total Protein 5.9 gm/dL (6.0-8.3) L 06/30/16 04:58 Albumin 3.0 gm/dL (3.7-5.3) L 06/30/16 04:58 Globulin 2.9 gm/dL 06/30/16 04:58 Albumin/Globulin Ratio 1.0 (1.0-1.8) 06/30/16 04:58 TSH 0.38 uIU/ml (0.34-5.60) 06/29/16 06:05 Vancomycin Trough 12.1 ug/mL (10-20) 06/29/16 09:00 Random Vancomycin 24.5 ug/mL (5.0-40.0) 06/30/16 04:58 - Physical Exam Vitals and I&O: Vital Signs Temp 98.1 F 06/30/16 15:56 Pulse 60 06/30/16 17:05 Resp 19 06/30/16 15:56 BP 130/71 06/30/16 17:05 Pulse Ox 96 06/30/16 15:56 Intake & Output 06/29/16 06/30/16 06/30/16 18:59 06:59 18:59 Intake Total 7986 470 5970 Balance 5088 172 0541 Intake: Intake, IV Amount 222 291 9279 Aztreonam 1 gm In 50 100 50 Dextrose 5% 50 ml @ 100 mls/hr IV Q8HR [facility] Rx#: [id number] Sodium Chloride 0.9% 1, 1000 000 ml @ 75 mls/hr IV . [id number] [facility] Rx#:[id number] Vancomycin HCl 1.75 gm In 500 500 Sodium Chloride 0.9% 500 ml @ 250 mls/hr IV Q12H [facility] Rx#:[id number] metroNIDAZOLE 500mg/NS 100 200 100 100mL 500 mg In 100 ml @ 100 mls/hr IV Q8HR [facility] Rx #:[id number] Oral 500 100 500 Other: # Voids 3 2 3 # Bowel Movements 1 1 Active Medications: Current Medications Acetaminophen (Tylenol) 650 mg PO Q6H PRN PRN Reason: Pain or Fever >101 Stop: 08/27/16 10:03 Last Admin: 06/28/16 21:10 Dose: 650 mg Atenolol (Tenormin) 50 mg PO DAILY [facility] Stop: 08/28/16 08:59 Last Admin: 06/30/16 09:08 Dose: Not Given Metronidazole (Flagyl) 500 mg in 100 mls @ 100 mls/hr IV Q8HR [facility] Stop: 08/27/16 12:59 Last Infusion: 06/30/16 15:27 Dose: Infused Sodium Chloride (Nacl 0.9%) 1,000 mls @ 75 mls/hr IV .[id number] [facility] Stop: 08/27/16 09:59 Last Infusion: 06/30/16 17:39 Dose: Infused Aztreonam 1 gm/ Dextrose 50 mls @ 100 mls/hr IV Q8HR [facility] Stop: 08/27/16 20:59 Last Infusion: 06/30/16 15:55 Dose: Infused Vancomycin HCl 1.5 gm/ Sodium (Chloride) 500 mls @ 250 mls/hr IV Q12H [facility] Stop: 08/29/16 21:59 Insulin Aspart (Novolog Insulin Sliding Scale) 0 units SUBQ Q6HR [facility] PRN Reason: Protocol Stop: 08/27/16 11:59 Last Admin: 06/30/16 17:11 Dose: Not Given Ketorolac Tromethamine (Toradol) 30 mg IVP Q6HR PRN PRN Reason: Pain (Severe) Stop: 08/27/16 15:54 Last Admin: 06/30/16 12:57 Dose: 30 mg Lisinopril (Zestril) 20 mg PO BID [facility] Stop: 08/27/16 09:59 Last Admin: 06/30/16 17:05 Dose: 20 mg Miscellaneous (Vancomycin Iv Per Pharmacy) 1 ea [facility] PRN PRN PRN Reason: PROTOCOL Stop: 08/27/16 07:20 Ondansetron HCl (Zofran) 4 mg IV Q6H PRN PRN Reason: Nausea / Vomiting Stop: 08/27/16 10:03 Pioglitazone HCl (Actos) 30 mg PO DAILY [facility] Stop: 08/27/16 09:59 Last Admin: 06/30/16 09:07 Dose: 30 mg Simvastatin (Zocor) 10 mg PO HS [facility] Stop: 08/27/16 20:59 Last Admin: 06/29/16 21:00 Dose: 10 mg Tramadol HCl (Ultram) 50 mg PO Q4HR PRN PRN Reason: Pain (Severe) Stop: 08/27/16 09:57 Zolpidem Tartrate (Ambien) 5 mg PO HS PRN PRN Reason: Insomnia Stop: 08/28/16 17:35 Last Admin: 06/29/16 21:00 Dose: 5 mg General: no acute distress, well developed, well nourished HEENT: atraumatic, normocephalic, PERRLA, EOMI, moist mucous membrane Neck: supple Cardiovascular: S1S2, regular Lungs: no clear to auscultation bilaterally, no clear to percussion Abdomen: soft, no tender, no distended Extremities: no cyanosis, no clubbing, no edema Neurological: awake, alert, oriented, CN 2-12 intact Skin: intact - Procedures Procedures: Procedures Procedure Code Date ANUS SURGERY PROCEDURE 78316 06/23/16 DESTRUC-SHOULDER LES NEC 80.81 11/08/01 DIAGNOSTIC SIGMOIDOSCOPY 52877 06/23/16 DRAINAGE OF ANUS, OPEN APPROACH [id number] 06/28/16 EXC SHOULDER EDGARDO DEEP < 5 CM 07281 11/08/01 EXCISION OF HEMORRHOIDAL PLEXUS, OPEN APPROACH [id number] 06/23/16 INCISION OF ANAL ABSCESS 73284 06/28/16 INSPECTION OF LOWER INTESTINAL TRACT, ENDO [id number] 06/23/16 Infectious Disease Assmt/Plan - Assessment Assessment: Impression: 1. Perianal, perirectal abscess. 2. Status I & D. Recommendations: Will continue same treatment. Abx vanco, azactam and flagyl. may change antibiotics to oral antibiotics depending on the culture report.
[2016-06-30] MEDS: Vancomycin HCl 1.5 GM in Sodium Chloride 0.9% 500 ML IV SCH (23:02)
[2016-07-01] MEDS: INSULIN ASPART SLIDING SCALE 100 UNITS/ML UNIT SUBQ SCH ×4 (00:55→12:57)
[2016-07-01] MEDS: metroNIDAZOLE 500mg/NS 100mL 500 MG/100 ML BAG IV SCH (04:56)
[2016-07-01 07:02] LABS: % BASOPHILS 0.5 % (0.0-2.0); % LYMPHOCYTES 28.9 % (20.0-50.0); % NEUTROPHILS 61.6 % (40.0-80.0); HEMATOCRIT 32.4 % (35.0-45.0); HEMOGLOBIN 11.1 gm/dL (11.7-15.5); MEAN CELL VOLUME 87.7 fl (81-100); MEAN CORPUSCULAR HEMOGLOBIN 30.1 pg (27.0-31.0); MEAN CORPUSCULAR HGB CONC 34.3 pg (28.0-36.0); MEAN PLATELET VOLUME 7.9 fl; NEUTROPHILE ABSOLUTE 6.1 Th/cmm (1.8-8.0); PLATELET COUNT 241 Th/cmm (150-400); RED CELL DISTRIBUTION WIDTH 12.6 % (11.5-20.0); WHITE BLOOD COUNT 9.8 Th/cmm (4.8-10.8)
[2016-07-01 07:13] LABS: ALKALINE PHOSPHATASE 37 U/L (34-104); ANION GAP 8.4 (7.0-16.0); BILIRUBIN,TOTAL 0.2 mg/dL (0.3-1.0); BUN - UREA NITROGEN 14 mg/dL (7-25); CALCIUM SERUM 8.2 mg/dL (8.6-10.3); CARBON DIOXIDE 23.3 mEq/L (21.0-31.0); CHLORIDE 111 mEq/L (98-107); CREATININE - SERUM 0.5 mg/dL (0.6-1.2); GLUCOSE 119 mg/dL (70-105); POTASSIUM SERUM 3.7 mEq/L (3.5-5.1); SGOT 13 U/L (13-39); SGPT/ALT 12 U/L (7-52); SODIUM SERUM 139 mEq/L (136-145)
--- NOTE | 2016-07-01 08:50 | General Progress Note ---
Subjective - Review of Systems Service Date: 07/01/16 Subjective: I fell better Objective - Results Result Diagrams: 07/01/16 06:25 07/01/16 06:25 Recent Labs: Laboratory Last Values WBC 9.8 Th/cmm (4.8-10.8) 07/01/16 06:25 RBC 3.70 Mil/cmm (3.80-5.10) L 07/01/16 06:25 Hgb 11.1 gm/dL (11.7-15.5) L 07/01/16 06:25 Hct 32.4 % (35.0-45.0) L 07/01/16 06:25 MCV 87.7 fl (81-100) 07/01/16 06:25 MCH 30.1 pg (27.0-31.0) 07/01/16 06:25 MCHC Differential 34.3 pg (28.0-36.0) 07/01/16 06:25 RDW 12.6 % (11.5-20.0) 07/01/16 06:25 Plt Count 241 Th/cmm (150-400) 07/01/16 06:25 MPV 7.9 fl 07/01/16 06:25 Neutrophils % 61.6 % (40.0-80.0) 07/01/16 06:25 Lymphocytes % 28.9 % (20.0-50.0) 07/01/16 06:25 Monocytes % 7.0 % (2.0-10.0) 07/01/16 06:25 Eosinophils % 2.0 % (0.0-5.0) 07/01/16 06:25 Basophils % 0.5 % (0.0-2.0) 07/01/16 06:25 PT 10.8 SECONDS (9.5-11.5) 06/28/16 00:45 INR 1.04 (0.5-1.4) 06/28/16 00:45 PTT (Actin FS) 26.8 SECONDS (26.0-38.0) 06/28/16 00:45 Sodium 139 mEq/L (136-145) 07/01/16 06:25 Potassium 3.7 mEq/L (3.5-5.1) 07/01/16 06:25 Chloride 111 mEq/L (98-107) H 07/01/16 06:25 Carbon Dioxide 23.3 mEq/L (21.0-31.0) 07/01/16 06:25 Anion Gap 8.4 (7.0-16.0) 07/01/16 06:25 BUN 14 mg/dL (7-25) 07/01/16 06:25 Creatinine 0.5 mg/dL (0.6-1.2) L 07/01/16 06:25 Est GFR ( Amer) > 60.0 ml/min (>90) 07/01/16 06:25 Est GFR (Non-Af Amer) > 60.0 ml/min 07/01/16 06:25 BUN/Creatinine Ratio 28.0 07/01/16 06:25 Glucose 119 mg/dL (70-105) H 07/01/16 06:25 POC Glucose 109 MG/DL (70 - 105) H 07/01/16 07:10 Whole Bld Lactic Acid 0.75 mmol/L (0.60-1.99) 06/28/16 00:45 Calcium 8.2 mg/dL (8.6-10.3) L 07/01/16 06:25 Total Bilirubin 0.2 mg/dL (0.3-1.0) L 07/01/16 06:25 AST 13 U/L (13-39) 07/01/16 06:25 ALT 12 U/L (7-52) 07/01/16 06:25 Alkaline Phosphatase 37 U/L (34-104) 07/01/16 06:25 Total Protein 5.7 gm/dL (6.0-8.3) L 07/01/16 06:25 Albumin 2.9 gm/dL (3.7-5.3) L 07/01/16 06:25 Globulin 2.8 gm/dL 07/01/16 06:25 Albumin/Globulin Ratio 1.0 (1.0-1.8) 07/01/16 06:25 TSH 0.38 uIU/ml (0.34-5.60) 06/29/16 06:05 Vancomycin Trough 12.1 ug/mL (10-20) 06/29/16 09:00 Random Vancomycin 24.5 ug/mL (5.0-40.0) 06/30/16 04:58 - Physical Exam Vitals and I&O: Vital Signs Temp 97.0 F 07/01/16 07:47 Pulse 80 07/01/16 08:19 Resp 20 07/01/16 07:47 BP 141/93 07/01/16 08:19 Pulse Ox 98 07/01/16 07:47 Intake & Output 06/30/16 07/01/16 07/01/16 18:59 06:59 18:59 Intake Total 2150 641.667 Balance 2150 641.667 Intake: Intake, IV Amount 1650 641.667 Aztreonam 1 gm In 50 50 Dextrose 5% 50 ml @ 100 mls/hr IV Q8HR [facility] Rx#: [id number] Sodium Chloride 0.9% 1, 1000 000 ml @ 75 mls/hr IV . [id number] [facility] Rx#:[id number] Vancomycin HCl 1.5 gm In 491.667 Sodium Chloride 0.9% 500 ml @ 250 mls/hr IV Q12H [facility] Rx#:[id number] metroNIDAZOLE 500mg/NS 100 100 100mL 500 mg In 100 ml @ 100 mls/hr IV Q8HR [facility] Rx #:[id number] Oral 500 Other: # Voids 3 # Bowel Movements 1 Active Medications: Current Medications Acetaminophen (Tylenol) 650 mg PO Q6H PRN PRN Reason: Pain or Fever >101 Stop: 08/27/16 10:03 Last Admin: 06/28/16 21:10 Dose: 650 mg Atenolol (Tenormin) 50 mg PO DAILY [facility] Stop: 08/28/16 08:59 Last Admin: 06/30/16 09:08 Dose: Not Given Metronidazole (Flagyl) 500 mg in 100 mls @ 100 mls/hr IV Q8HR [facility] Stop: 08/27/16 12:59 Last Admin: 07/01/16 04:56 Dose: 100 mls/hr Sodium Chloride (Nacl 0.9%) 1,000 mls @ 75 mls/hr IV .[id number] [facility] Stop: 08/27/16 09:59 Last Infusion: 06/30/16 17:39 Dose: Infused Aztreonam 1 gm/ Dextrose 50 mls @ 100 mls/hr IV Q8HR [facility] Stop: 08/27/16 20:59 Last Admin: 07/01/16 06:18 Dose: 100 mls/hr Vancomycin HCl 1.5 gm/ Sodium (Chloride) 500 mls @ 250 mls/hr IV Q12H [facility] Stop: 08/29/16 21:59 Last Infusion: 07/01/16 01:00 Dose: Infused Insulin Aspart (Novolog Insulin Sliding Scale) 0 units SUBQ Q6HR [facility] PRN Reason: Protocol Stop: 08/27/16 11:59 Last Admin: 07/01/16 07:11 Dose: Not Given Ketorolac Tromethamine (Toradol) 30 mg IVP Q6HR PRN PRN Reason: Pain (Severe) Stop: 08/27/16 15:54 Last Admin: 07/01/16 03:42 Dose: 30 mg Lisinopril (Zestril) 20 mg PO BID [facility] Stop: 08/27/16 09:59 Last Admin: 07/01/16 08:19 Dose: 20 mg Miscellaneous (Vancomycin Iv Per Pharmacy) 1 ea [facility] PRN PRN PRN Reason: PROTOCOL Stop: 08/27/16 07:20 Ondansetron HCl (Zofran) 4 mg IV Q6H PRN PRN Reason: Nausea / Vomiting Stop: 08/27/16 10:03 Pioglitazone HCl (Actos) 30 mg PO DAILY [facility] Stop: 08/27/16 09:59 Last Admin: 07/01/16 08:19 Dose: 30 mg Simvastatin (Zocor) 10 mg PO HS [facility] Stop: 08/27/16 20:59 Last Admin: 06/30/16 21:53 Dose: 10 mg Tramadol HCl (Ultram) 50 mg PO Q4HR PRN PRN Reason: Pain (Severe) Stop: 08/27/16 09:57 Zolpidem Tartrate (Ambien) 5 mg PO HS PRN PRN Reason: Insomnia Stop: 08/28/16 17:35 Last Admin: 06/30/16 21:54 Dose: 5 mg General: Alert, Oriented x3, Cooperative, No acute distress HEENT: Atraumatic Neck: Supple Cardiovascular: Regular rate Lungs: Clear to auscultation Abdomen: Bowel sounds, Soft Extremities: Other (No edema) Neurological: Normal gait Skin: Other (Perianal Surgical wound clean) Psych/Mental Status: Mental status NL - Procedures Procedures: Procedures Procedure Code Date ANUS SURGERY PROCEDURE 12815 06/23/16 DESTRUC-SHOULDER LES NEC 80.81 11/08/01 DIAGNOSTIC SIGMOIDOSCOPY 81235 06/23/16 DRAINAGE OF ANUS, OPEN APPROACH [id number] 06/28/16 EXC SHOULDER EDGARDO DEEP < 5 CM 14669 11/08/01 EXCISION OF HEMORRHOIDAL PLEXUS, OPEN APPROACH [id number] 06/23/16 INCISION OF ANAL ABSCESS 17738 06/28/16 INSPECTION OF LOWER INTESTINAL TRACT, ENDO [id number] 06/28/16 Assessment/Plan - Assessment Assessment: Patient is awake, alert, calm in no acute distress. WBC normal. Dx: Perianal abcess, DM, HTN, Obesity. - Plan Plan: Patient in vanco and flagyl, will continue to monitor. Case discussed with porter sample case.
[2016-07-01] MEDS: Vancomycin HCl 1.5 GM in Sodium Chloride 0.9% 500 ML IV SCH (10:47)
--- NOTE | 2016-07-01 12:53 | General Progress Note ---
Subjective - Review of Systems Service Date: 07/01/16 Events since last encounter: WBC normal sitz bath not possible with present rocha to use tub at home post DC continue antibiotics Objective - Results Result Diagrams: 07/01/16 06:25 07/01/16 06:25 Recent Labs: Laboratory Last Values WBC 9.8 Th/cmm (4.8-10.8) 07/01/16 06:25 RBC 3.70 Mil/cmm (3.80-5.10) L 07/01/16 06:25 Hgb 11.1 gm/dL (11.7-15.5) L 07/01/16 06:25 Hct 32.4 % (35.0-45.0) L 07/01/16 06:25 MCV 87.7 fl (81-100) 07/01/16 06:25 MCH 30.1 pg (27.0-31.0) 07/01/16 06:25 MCHC Differential 34.3 pg (28.0-36.0) 07/01/16 06:25 RDW 12.6 % (11.5-20.0) 07/01/16 06:25 Plt Count 241 Th/cmm (150-400) 07/01/16 06:25 MPV 7.9 fl 07/01/16 06:25 Neutrophils % 61.6 % (40.0-80.0) 07/01/16 06:25 Lymphocytes % 28.9 % (20.0-50.0) 07/01/16 06:25 Monocytes % 7.0 % (2.0-10.0) 07/01/16 06:25 Eosinophils % 2.0 % (0.0-5.0) 07/01/16 06:25 Basophils % 0.5 % (0.0-2.0) 07/01/16 06:25 PT 10.8 SECONDS (9.5-11.5) 06/28/16 00:45 INR 1.04 (0.5-1.4) 06/28/16 00:45 PTT (Actin FS) 26.8 SECONDS (26.0-38.0) 06/28/16 00:45 Sodium 139 mEq/L (136-145) 07/01/16 06:25 Potassium 3.7 mEq/L (3.5-5.1) 07/01/16 06:25 Chloride 111 mEq/L (98-107) H 07/01/16 06:25 Carbon Dioxide 23.3 mEq/L (21.0-31.0) 07/01/16 06:25 Anion Gap 8.4 (7.0-16.0) 07/01/16 06:25 BUN 14 mg/dL (7-25) 07/01/16 06:25 Creatinine 0.5 mg/dL (0.6-1.2) L 07/01/16 06:25 Est GFR ( Amer) > 60.0 ml/min (>90) 07/01/16 06:25 Est GFR (Non-Af Amer) > 60.0 ml/min 07/01/16 06:25 BUN/Creatinine Ratio 28.0 07/01/16 06:25 Glucose 119 mg/dL (70-105) H 07/01/16 06:25 POC Glucose 109 MG/DL (70 - 105) H 07/01/16 07:10 Whole Bld Lactic Acid 0.75 mmol/L (0.60-1.99) 06/28/16 00:45 Calcium 8.2 mg/dL (8.6-10.3) L 07/01/16 06:25 Total Bilirubin 0.2 mg/dL (0.3-1.0) L 07/01/16 06:25 AST 13 U/L (13-39) 07/01/16 06:25 ALT 12 U/L (7-52) 07/01/16 06:25 Alkaline Phosphatase 37 U/L (34-104) 07/01/16 06:25 Total Protein 5.7 gm/dL (6.0-8.3) L 07/01/16 06:25 Albumin 2.9 gm/dL (3.7-5.3) L 07/01/16 06:25 Globulin 2.8 gm/dL 07/01/16 06:25 Albumin/Globulin Ratio 1.0 (1.0-1.8) 07/01/16 06:25 TSH 0.38 uIU/ml (0.34-5.60) 06/29/16 06:05 Vancomycin Trough 12.1 ug/mL (10-20) 06/29/16 09:00 Random Vancomycin 24.5 ug/mL (5.0-40.0) 06/30/16 04:58 - Physical Exam Vitals and I&O: Vital Signs Temp 97.1 F 07/01/16 12:15 Pulse 66 07/01/16 12:15 Resp 19 07/01/16 12:15 BP 161/82 07/01/16 12:15 Pulse Ox 97 07/01/16 12:15 Intake & Output 06/30/16 07/01/16 07/01/16 18:59 06:59 18:59 Intake Total 2150 691.667 450 Balance 2150 691.667 450 Intake: Intake, IV Amount 1650 691.667 Aztreonam 1 gm In 50 100 Dextrose 5% 50 ml @ 100 mls/hr IV Q8HR [facility] Rx#: [id number] Sodium Chloride 0.9% 1, 1000 000 ml @ 75 mls/hr IV . [id number] [facility] Rx#:[id number] Vancomycin HCl 1.5 gm In 491.667 Sodium Chloride 0.9% 500 ml @ 250 mls/hr IV Q12H [facility] Rx#:[id number] metroNIDAZOLE 500mg/NS 100 100 100mL 500 mg In 100 ml @ 100 mls/hr IV Q8HR [facility] Rx #:[id number] Oral 500 450 Other: # Voids 3 2 # Bowel Movements 1 Active Medications: Current Medications Acetaminophen (Tylenol) 650 mg PO Q6H PRN PRN Reason: Pain or Fever >101 Stop: 08/27/16 10:03 Last Admin: 06/28/16 21:10 Dose: 650 mg Atenolol (Tenormin) 50 mg PO DAILY [facility] Stop: 08/28/16 08:59 Last Admin: 07/01/16 10:49 Dose: 50 mg Metronidazole (Flagyl) 500 mg in 100 mls @ 100 mls/hr IV Q8HR [facility] Stop: 08/27/16 12:59 Last Admin: 07/01/16 04:56 Dose: 100 mls/hr Sodium Chloride (Nacl 0.9%) 1,000 mls @ 75 mls/hr IV .[id number] [facility] Stop: 08/27/16 09:59 Last Infusion: 06/30/16 17:39 Dose: Infused Aztreonam 1 gm/ Dextrose 50 mls @ 100 mls/hr IV Q8HR [facility] Stop: 08/27/16 20:59 Last Admin: 07/01/16 12:45 Dose: 100 mls/hr Vancomycin HCl 1.5 gm/ Sodium (Chloride) 500 mls @ 250 mls/hr IV Q12H [facility] Stop: 08/29/16 21:59 Last Admin: 07/01/16 10:47 Dose: 165 mls/hr Insulin Aspart (Novolog Insulin Sliding Scale) 0 units SUBQ Q6HR SHAYNE PRN Reason: Protocol Stop: 08/27/16 11:59 Last Admin: 07/01/16 07:11 Dose: Not Given Ketorolac Tromethamine (Toradol) 30 mg IVP Q6HR PRN PRN Reason: Pain (Severe) Stop: 08/27/16 15:54 Last Admin: 07/01/16 10:52 Dose: 30 mg Lisinopril (Zestril) 20 mg PO BID [facility] Stop: 08/27/16 09:59 Last Admin: 07/01/16 10:48 Dose: 20 mg Miscellaneous (Vancomycin Iv Per Pharmacy) 1 ea MC PRN PRN PRN Reason: PROTOCOL Stop: 08/27/16 07:20 Ondansetron HCl (Zofran) 4 mg IV Q6H PRN PRN Reason: Nausea / Vomiting Stop: 08/27/16 10:03 Pioglitazone HCl (Actos) 30 mg PO DAILY [facility] Stop: 08/27/16 09:59 Last Admin: 07/01/16 08:19 Dose: 30 mg Simvastatin (Zocor) 10 mg PO HS [facility] Stop: 08/27/16 20:59 Last Admin: 06/30/16 21:53 Dose: 10 mg Tramadol HCl (Ultram) 50 mg PO Q4HR PRN PRN Reason: Pain (Severe) Stop: 08/27/16 09:57 Zolpidem Tartrate (Ambien) 5 mg PO HS PRN PRN Reason: Insomnia Stop: 08/28/16 17:35 Last Admin: 06/30/16 21:54 Dose: 5 mg - Procedures Procedures: Procedures Procedure Code Date ANUS SURGERY PROCEDURE 61627 06/23/16 DESTRUC-SHOULDER LES NEC 80.81 11/08/01 DIAGNOSTIC SIGMOIDOSCOPY 23562 06/23/16 DRAINAGE OF ANUS, OPEN APPROACH [id number] 06/28/16 EXC SHOULDER EDGARDO DEEP < 5 [place] [address] 11/08/01 EXCISION OF HEMORRHOIDAL PLEXUS, OPEN APPROACH [id number] 06/23/16 INCISION OF ANAL ABSCESS 59509 06/28/16 INSPECTION OF LOWER INTESTINAL TRACT, ENDO [id number] 06/28/16
--- NOTE | 2016-07-11 00:53 | Discharge Summary ---
DATE OF DISCHARGE: 07/01/2016 CHIEF COMPLAINT: Rectal pain. HISTORY OF PRESENT ILLNESS: This is the case of a 51-year-old female, who was discharged a few days ago from this hospital. She was treated for rectal abscess. The patient received treatment and was discharged, but the patient reports that a few days ago, the pain increased so much that she decided to come again to Emergency Room for another evaluation. Abdominal CT was done and was found to have only left perianal abscess, approximately 6.1 cm in the cephalocaudal dimension and 5.4 in the AP dimension and 3.4 in the perianal area. The patient was hospitalized for this reason. HOSPITAL COURSE AND TREATMENT: This patient was admitted in the medical-surgical floor. She was started on vancomycin and Flagyl. Consults with surgeon and ID were done. ID recommended and surgeon recommended debridement of the abscess. The patient had surgery and little by little improved, and after 5 days in the hospital, it was considered the patient received the maximum benefit of hospitalization, and she could be sent home to continue treatment with primary care physician. At the moment of the discharge, the patient was awake, alert, in no acute distress. CONSULTANTS IN THIS CASE: 1. Dr. Cristian Merritt, Infectious Disease. 2. Dr. Mccartney, surgeon. DISPOSITION: The patient is sent home to continue treatment with primary care physician. DIAGNOSIS: Rectal abscess. JOB# [id number]
== END 2016-07-01 17:15 | DRG 226 ==
LOC: ER 23:43 → MSI 06-28 02:00
PROVIDERS: ADMIT General Practice; ATTEND General Practice
PROC: 0D9Q0ZZ Drainage of Anus, Open Approach (ICD-10-PCS; principal; 2016-06-28)
PROC: 0DJD8ZZ Inspection of Lower Intestinal Tract, Via Natural or Artificial Opening Endoscopic (ICD-10-PCS; 2016-06-28)
DX: K61.0 Anal abscess (principal); E11.65 Type 2 diabetes mellitus with hyperglycemia; I10 Essential (primary) hypertension; E66.9 Obesity, unspecified; Z68.39 Body mass index [BMI] 39.0-39.9, adult; E78.5 Hyperlipidemia, unspecified
CPT/HCPCS: 36415-UA; 72193-TC; 80053-TC; 80202-TC; 82948-90; 83605; 84443-TC; 85025-TC; 85610-TC; 85730-TC; 87070-90; 87075-90; 87205-90; 90799; 96374; 96375; J0744; J1815; J1885; J2250; J2270; J3370; J3490; J7030; J7040; Q9967; V2790; X5790; Z7610

== ENCOUNTER 2016-11-24 14:04 | Emergency (ER) | payer OTHER ==
--- NOTE | 2016-11-24 14:30 | ED Physician Chart ---
ED Chief Complaint/HPI - Patient Information Date Seen:: 11/24/16 Time Seen:: 14:25 Chief Complaint:: fell History of Present Illness:: pt here because she tripped over a concrete barrier and fell 2 wks ago. no loc. fel to knees. has b hip pain s and l hand pains since. also knees feels weak/ bother her. she has htn ad dm and is compliant and ses pmd q 3 months but hasnt been able to get appt yet since fall. has multiple pains since...had some relief w naproxyn but ran out. found motrin helped in past but doesnt have any. feels more sore now. sore at rt breast also..worse w touch in same area no weak/numb. no neuro loss. no fever. no abd pain. no back pain. no RESENDIZ, no sz. no confusion. no n/v/d. eating ok. Allergies:: Allergies Allergy/AdvReac Type Severity Reaction Status Date / Time Penicillins [PCN] Allergy Verified 06/28/16 00:16 Vitals:: Vital Signs - 8 hr 11/24/16 14:17 Temp 99.7 F HR 75 RR 18 BP 164/63 O2 Sat % 95 Historian:: Patient ED Review of Systems - Review of Systems General/Constitutional: No fever, No chills, No weight loss, No weakness, No diaphoresis, No edema, No loss of appetite Skin: No skin lesions, No rash, No bruising Head: No headache, No light-headedness Eyes: No loss of vision, No pain, No diplopia ENT: No earache, No nasal drainage, No sore throat, No tinnitus Neck: No neck pain, No swelling, No thyromegaly, No stiffness, No mass noted Cardio Vascular: No chest pain, No palpitations, No PND, No orthopnea, No edema Pulmonary: No SOB, No cough, No sputum, No wheezing GI: No nausea, No vomiting, No diarrhea, No pain, No melena, No hematochezia, No constipation, No hematemesis G/U: No dysuria, No frequency, No hematuria Musculoskeletal: Bone or joint pain, No back pain, No muscle pain Endocrine: No polyuria, No polydipsia Psychiatric: No prior psych history, No depression, No anxiety, No suicidal ideation Hematopoietic: No bruising, No lymphadenopathy Allergic/Immuno: No urticaria, No angioedema Neurological: No syncope, No focal symptoms, No weakness, No paresthesia, No headache, No seizure, No dizziness, No confusion, No vertigo ED Past Medical History - Past Medical History Past Medical History: HTN, DM Social History: , Other (6 kids) Medication: Reviewed Family Medical History - Family Member Mother History Unknown: Yes Ethnicity: Living Status: Unknown Hx Family Diabetes: Yes ED Physical Exam - Physical Examination General/Constitutional: Awake, Well-developed, well-nourished, Alert, No distress, GCS 15, Non-toxic appearing, Ambulatory Other Gen/Cons comments:: pt appears well...alert/oriented. moves ok around rm/bed and seems in nad. no visible bruising or obvious injury on exam. Head: Atraumatic Eyes: Lids, conjuctiva normal, PERRL, EOMI Skin: Nl inspection, No rash, No skin lesions, No ecchymosis, Well hydrated, No lymphadenopathy ENMT: External ears, nose nl, Nasal exam nl, Lips, teeth, gums nl Neck: Nontender, Full ROM w/o pain, No JVD, No nuchal rigidity, No bruit, No mass, No stridor Respiratory: Nl effort/Exclusion, Clear to Auscultation, No Wheeze/Rhonchi/Rales Other Respiratory comments:: examine rt breast area w rn present. no bruise. slt underlying rib tndrness aprox 3,4,5 ribs on rt. no hematoma etc. no sob. Cardio Vascular: RRR, No murmur, gallop, rubs, NL S1 S2 GI: No tenderness/rebounding/guarding, No organomegaly, No hernia, Normal BS's, Nondistended, No mass/bruits, No McBurney tenderness Other GI comments:: nontndr spleen nontndr abd. no mass. mod obese. : No CVA tenderness Extremities: No tenderness or effusion, Full ROM, normal strength in all extremities, No edema, Normal digits & nails Other Extremities comments:: b knees seems to have nrml stability and rom. neither seems to have tndrness. no effusion. nrml color and temp. left hand has mid metacarpal tndrness..no bruising or obvious deformity. good rom. good sensation. b hips are sltly tndr anteriorly. pt has been walking x 2 wks and is ambulatory wo obvios difficulty. Neuro/Psych: Alert/oriented, DTR's symmetric, Normal sensory exam, Normal motor strength, Judgement/insight normal, Mood normal, Normal gait, No focal deficits Misc: normal gait, Normal back, No paraspinal tenderness ED Labs/Radiology/EKG Results - Lab Results Results: Laboratory Tests 11/24/16 11/24/16 11/24/16 14:40 14:40 14:40 WBC 11.1 H RBC 4.52 Hgb 13.3 D Hct 39.4 D MCV 87.0 MCH 29.4 MCHC Differential 33.7 RDW 13.4 Plt Count 210 MPV 7.8 Neutrophils % 61.6 Lymphocytes % 25.4 Monocytes % 8.7 Eosinophils % 0.9 Basophils % 3.4 H Sodium 132 L Potassium 3.4 L Chloride 102 Carbon Dioxide 27.5 Anion Gap 5.9 L BUN 13 Creatinine 0.5 L Est GFR ( Amer) > 60.0 Est GFR (Non-Af Amer) > 60.0 BUN/Creatinine Ratio 26.0 Glucose 100 Calcium 8.9 Total Bilirubin 0.4 AST 13 ALT 12 Alkaline Phosphatase 62 Troponin I < 0.01 L Total Protein 6.7 Albumin 3.7 Globulin 3.0 Albumin/Globulin Ratio 1.2 - Radiology Results Results: rt hip no fx lt hip no fx pelvis no fx, mild djd c spine no fx, mild djd rt ribs xrays - no fx lt hand xray- ? irreg at [facility] ..poss nondisplaced fx - EKG Interpretations EKG Time:: 15:30 Rate & Rhythm: nsr 67 [place]: 17 Intervals: pr140 Comments:: ok ED Septic Shock - . Is Septic Shock (SBP<90, OR Lactate>4 mmol\L) present?: No - <6hrs of presentation: Vital Signs: Vital Signs - 8 hr 11/24/16 14:17 Temp 99.7 F HR 75 RR 18 BP 164/63 O2 Sat % 95 ED Reassessment (Disposition) - Reassessment Reassessment:: xray copies of lt hand ordered for pt to go w. (on re-exam of rt hand I am not convinced the xray finding correlates to area of pts pain which is more distal ...however will advise mark and no heavy use of hand until seen by pmd for rechk.) reviewed results w pt. pt wants pain med rx. advise use tylenol if pain not too bad. can use mark on rt hand to stabilize until rechk. 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 rx ultracet #15 Reassessment Condition:: Improved - Diagnosis Diagnosis:: lt hand possible nondisplaced fx at [facility] of [facility] 2weeks s/p fall w generalized aches - Aftercare/Follow up Instructions Aftercare/Follow-Up Instructions:: Counseled pt regarding lab results/diagnosis & need follow up - Patient Disposition Discharge/Transfer:: Home Condition at Disposition:: Improved
[2016-11-24 14:50] LABS: % BASOPHILS 3.4 % (0.0-2.0); % EOSINOPHILS 0.9 % (0.0-5.0); % LYMPHOCYTES 25.4 % (20.0-50.0); % MONOCYTES 8.7 % (2.0-10.0); % NEUTROPHILS 61.6 % (40.0-80.0); MEAN CORPUSCULAR HEMOGLOBIN 29.4 pg (27.0-31.0); MEAN CORPUSCULAR HGB CONC 33.7 pg (28.0-36.0); MEAN PLATELET VOLUME 7.8 fl; NEUTROPHILE ABSOLUTE 6.8 Th/cmm (1.8-8.0); PLATELET COUNT 210 Th/cmm (150-400); RED BLOOD COUNT 4.52 Mil/cmm (3.80-5.10); RED CELL DISTRIBUTION WIDTH 13.4 % (11.5-20.0); WHITE BLOOD COUNT 11.1 Th/cmm (4.8-10.8)
--- NOTE | 2016-11-24 15:10 | Diagnostic Imaging Report ---
Left hand 2 views Indication: pain Comparison: none Findings: Exam is limited as of the views are not obtained. There is slight irregularity bone the base of the fourth metacarpal. Mild degenerative changes are noted. No dislocation. Impression: Slight irregularity of the base of the fourth metacarpal. Findings may be projectional. A nondisplaced fracture, however, cannot be excluded. Please correlate with clinical findings and point tenderness in this region. Mild degenerative changes. In the setting of trauma, if clinical symptoms persist and there is continued concern for an occult fracture, follow up exams in 5-7 days is suggested.
[2016-11-24 15:20] LABS: ALB/GLOB RATIO 1.2 (1.0-1.8); ALKALINE PHOSPHATASE 62 U/L (34-104); ANION GAP 5.9 (7.0-16.0); BILIRUBIN,TOTAL 0.4 mg/dL (0.3-1.0); BUN - UREA NITROGEN 13 mg/dL (7-25); CALCIUM SERUM 8.9 mg/dL (8.6-10.3); CARBON DIOXIDE 27.5 mEq/L (21.0-31.0); CHLORIDE 102 mEq/L (98-107); CREATININE - SERUM 0.5 mg/dL (0.6-1.2); GLUCOSE 100 mg/dL (70-105); POTASSIUM SERUM 3.4 mEq/L (3.5-5.1); SGOT 13 U/L (13-39); SGPT/ALT 12 U/L (7-52); SODIUM SERUM 132 mEq/L (136-145)
[2016-11-24 15:33] LABS: HEMATOCRIT 39.4 % (35.0-45.0); HEMOGLOBIN 13.3 gm/dL (11.7-15.5)
--- NOTE | 2016-11-24 15:33 | Diagnostic Imaging Report ---
Pelvis and bilateral hips 2 views Indication: Fall Comparison: none Findings: Mild degenerative changes of both hip joints are noted. Enthesophyte formation of the pelvis is noted. No evidence of an acute fracture or dislocation. Nonspecific small calcifications the right lower quadrant are noted. Impression: No evidence of an acute fracture. Mild degenerative changes Nonspecific right lower quadrant calcifications possibly vascular or distal ureteral stones or less likely appendicoliths. In the setting of trauma, if clinical symptoms persist and there is continued concern for an occult fracture, follow up exams in 5-7 days is suggested.
--- NOTE | 2016-11-24 15:35 | Diagnostic Imaging Report ---
Cervical spine limited, 3 views Indication: Fall Comparison: none Findings: Exam is limited due to body habitus including limited assessment of the lower cervical spine and cervicothoracic junction. No obvious acute compression fracture or subluxation. Mild generalized degenerative changes are noted. There is straightening of the cervical lordosis. No prevertebral soft tissue swelling. Impression: Suboptimal evaluation of the mid to lower cervical spine due to patient body habitus. No obvious acute compression fracture or subluxation, however, given history of trauma consider further assessment with CT of the cervical spine. Mild degenerative changes Straightening of the cervical lordosis which may be due to positioning versus muscle spasm. In the setting of trauma, if clinical symptoms persist and there is continued concern for an occult fracture, follow up exams in 5-7 days is suggested.
--- NOTE | 2016-11-24 15:37 | Diagnostic Imaging Report ---
Right ribs Limited 2 views Indication: Fall Comparison: none Findings: Exam is limited as only 2 views were obtained. Degenerative changes of the spine and right shoulder are seen with performed over calcification adjacent to the right humeral head. No evidence of a right rib fracture. Impression: No evidence of an acute fracture. In the setting of trauma, if clinical symptoms persist and there is continued concern for an occult fracture, follow up exams in 5-7 days is suggested.
== END 2016-11-24 16:31 | disposition home or self-care (01) ==
LOC: ER 14:04
DX: R52 Pain, unspecified (principal); I10 Essential (primary) hypertension; E11.9 Type 2 diabetes mellitus without complications
CPT/HCPCS: 36415-UA; 71101-TC-RT; 72040-TC; 73120-TC-LT; 73521; 80053-TC; 84484-TC; 85025-TC; 93005

== ENCOUNTER 2016-12-22 21:59 | Inpatient (IN) | payer OTHER ==
[2016-12-23 01:18] LABS: % BASOPHILS 0.4 % (0.0-2.0); % LYMPHOCYTES 30.3 % (20.0-50.0); % MONOCYTES 8.1 % (2.0-10.0); % NEUTROPHILS 59.2 % (40.0-80.0); HEMOGLOBIN 14.3 gm/dL (12-16); MEAN CELL VOLUME 88.9 fl (81-100); MEAN CORPUSCULAR HEMOGLOBIN 30.3 pg (27.0-31.0); MEAN CORPUSCULAR HGB CONC 34.1 pg (28.0-36.0); MEAN PLATELET VOLUME 7.6 fl; NEUTROPHILE ABSOLUTE 5.8 Th/cmm (1.8-8.0); PLATELET COUNT 208 Th/cmm (150-400); RED BLOOD COUNT 4.72 Mil/cmm (3.80-5.10); RED CELL DISTRIBUTION WIDTH 13.5 % (11.5-20.0); WHITE BLOOD COUNT 9.8 Th/cmm (4.8-10.8)
--- NOTE | 2016-12-23 01:21 | ED Physician Chart ---
ED Chief Complaint/HPI - Patient Information Date Seen:: 12/23/16 Time Seen:: 01:18 Chief Complaint:: Perianal pain and left groin pain History of Present Illness:: 51 yo diabetic female developed left perianal abscess after hemorrhoidectomy 6 months ago. Incision and drainage of the perianal abscess was performed 4 days later and the pain improved during the first 2 weeks. But on the 3rd week, she had worsening pain and pressure at previously drained site which lasted for 2 weeks before it bursted spontaneously. The patient then went to PCP who prescribed 2 oral antibiotics for 10 days. After completion of the antibiotics, the abscess and pain improved before its pain and pressure gradually re- occurred. The patient also complained numbness in the perianal area. She denies any itchiness. She also has subjective fever for 2 days. Allergies:: Allergies Allergy/AdvReac Type Severity Reaction Status Date / Time Penicillins [PCN] Allergy Verified 06/28/16 00:16 Vitals:: Vital Signs - 8 hr 12/22/16 22:10 HR 75 RR 18 BP 159/83 O2 Sat % 96 ED Review of Systems - Review of Systems General/Constitutional: No chills Skin: Skin lesions Eyes: No loss of vision ENT: No earache Neck: No neck pain Cardio Vascular: No chest pain Pulmonary: No SOB GI: No nausea, No vomiting Musculoskeletal: No bone or joint pain Psychiatric: No prior psych history ED Past Medical History - Past Medical History Past Medical History: HTN, DM, Dyslipidemia Family History: Diabetes Melitus, HTN Social History: Smoker, Alcohol (occasionally), No Drug Use Surgical History: other (hemorrhoid surgery 06/25/16, abscess drained on 06/29/16) Family Medical History - Family Member Mother History Unknown: Yes Ethnicity: Living Status: Unknown Hx Family Cancer: Yes (UTERINE [place]) Hx Family Diabetes: Yes ED Physical Exam - Physical Examination General/Constitutional: Awake, Well-developed, well-nourished, Alert Head: Atraumatic Eyes: PERRL, EOMI Other Skin comments:: Perianal area on the left gluteal side, there is a small opening with purulent drainage. There is significant tenderness in the surrounding area with mild erythema and warmness. ENMT: Nasal exam nl Neck: Full ROM w/o pain Respiratory: Clear to Auscultation Cardio Vascular: RRR, No murmur, gallop, rubs, NL S1 S2 GI: No tenderness/rebounding/guarding Other comments:: Perianal area on the left gluteal side, there is a small opening with purulent drainage. There is significant tenderness in the surrounding area with mild erythema and warmness. Extremities: normal strength in all extremities Neuro/Psych: No focal deficits ED Assessment - Assessment General Assessment: 51 yo has recurrent perianal/perirectal abscess for 6 months which requires a more definitive incision and drainage. Hypokalemia, mild. Critical Care Time: 30 Excludes all billable procedures: Yes This condition life threatening/high prob of deterioration: No Assessment/Comments:: CBC, CMP KCL 20mEq Admission for surgical consult ED Septic Shock - . Is Septic Shock (SBP<90, OR Lactate>4 mmol\L) present?: No - <6hrs of presentation: Vital Signs: Vital Signs - 8 hr 12/22/16 22:10 HR 75 RR 18 BP 159/83 O2 Sat % 96 ED Reassessment (Disposition) - Reassessment Reassessment Condition:: Unchanged - Patient Disposition Discharge/Transfer:: Acute Care w/in this hosp Accepting Physician:: Dr. Howe Admitted to:: Med/Surg ED Discharge Plan - Patient Disposition Admit/Discharge/Transfer: Acute Care w/in this hosp
[2016-12-23 01:36] LABS: ALB/GLOB RATIO 1.2 (1.0-1.8); ALKALINE PHOSPHATASE 75 U/L (34-104); ANION GAP 8.2 (7.0-16.0); BILIRUBIN,TOTAL 0.3 mg/dL (0.3-1.0); BUN - UREA NITROGEN 16 mg/dL (7-25); CALCIUM SERUM 8.9 mg/dL (8.6-10.3); CARBON DIOXIDE 29.2 mEq/L (21.0-31.0); CHLORIDE 102 mEq/L (98-107); CREATININE - SERUM 0.5 mg/dL (0.6-1.2); GLUCOSE 102 mg/dL (70-105); POTASSIUM SERUM 3.4 mEq/L (3.5-5.1); SGOT 12 U/L (13-39); SGPT/ALT 12 U/L (7-52); SODIUM SERUM 136 mEq/L (136-145)
[2016-12-23] MEDS ORDERED: D5-0.45NS 1,000 ML IV SCH (02:00)
[2016-12-23] MEDS ORDERED: Morphine Sulfate 2 mg/mL 1mL Syr IVP PRN ×2 (02:15)
[2016-12-23] MEDS ORDERED: Potassium Chloride 20 mEq ER Tab PO ONE ×2 (03:15)
[2016-12-23 04:47] VITALS: BP 135/75
[2016-12-23] MEDS ORDERED: Pneumococcal Vaccine 0.5 mL Vial IM ONE (04:56)
[2016-12-23 05:58] LABS: % BASOPHILS 0.6 % (0.0-2.0); % EOSINOPHILS 2.3 % (0.0-5.0); % LYMPHOCYTES 30.5 % (20.0-50.0); % NEUTROPHILS 56.6 % (40.0-80.0); HEMATOCRIT 40.3 % (41.0-60); HEMOGLOBIN 13.7 gm/dL (12-16); MEAN CELL VOLUME 88.2 fl (81-100); MEAN CORPUSCULAR HEMOGLOBIN 30.1 pg (27.0-31.0); MEAN CORPUSCULAR HGB CONC 34.1 pg (28.0-36.0); MEAN PLATELET VOLUME 8.2 fl; NEUTROPHILE ABSOLUTE 5.4 Th/cmm (1.8-8.0); PLATELET COUNT 190 Th/cmm (150-400); RED BLOOD COUNT 4.57 Mil/cmm (3.80-5.10); RED CELL DISTRIBUTION WIDTH 13.4 % (11.5-20.0); WHITE BLOOD COUNT 9.7 Th/cmm (4.8-10.8)
[2016-12-23 06:13] LABS: ALB/GLOB RATIO 1.1 (1.0-1.8); ALKALINE PHOSPHATASE 59 U/L (34-104); ANION GAP 9.7 (7.0-16.0); BILIRUBIN,TOTAL 0.3 mg/dL (0.3-1.0); BUN - UREA NITROGEN 13 mg/dL (7-25); CALCIUM SERUM 8.6 mg/dL (8.6-10.3); CARBON DIOXIDE 26.8 mEq/L (21.0-31.0); CHLORIDE 103 mEq/L (98-107); CREATININE - SERUM 0.5 mg/dL (0.6-1.2); GLUCOSE 138 mg/dL (70-105); POTASSIUM SERUM 3.5 mEq/L (3.5-5.1); SGOT 12 U/L (13-39); SGPT/ALT 12 U/L (7-52); SODIUM SERUM 136 mEq/L (136-145)
--- NOTE | 2016-12-23 10:47 | History and Physical ---
History of Present Illness - HPI Vital Signs: Last Vital Signs Temp 97.8 F 12/23/16 04:00 Pulse 77 12/23/16 04:00 Resp 20 12/23/16 04:00 BP 135/75 12/23/16 04:47 Pulse Ox 97 12/23/16 04:00 Family Medical History - Family Member Mother History Unknown: Yes Ethnicity: Living Status: Unknown Hx Family Cancer: Yes (UTERINE [place]) Hx Family Diabetes: Yes - Medications Home Medications: Home Medication Medication Instructions Recorded Type Atenolol 50 mg PO DAILY 06/23/16 History Lisinopril 20 mg PO BID 06/23/16 History Pioglitazone HCl [Actos] 30 mg PO DAILY 06/23/16 History Pravastatin Sodium 20 mg PO DAILY 06/23/16 History Tramadol HCl/Acetaminophen 1 tab PO Q6H PRN #30 tab 11/24/16 Rx [Ultracet Tablet] - Allergies Allergies/Adverse Reactions: Allergies Allergy/AdvReac Type Severity Reaction Status Date / Time Penicillins [PCN] Allergy Verified 06/28/16 00:16 - Lab Results All Lab Results last 24 hours: Laboratory Last Values WBC 9.7 Th/cmm (4.8-10.8) 12/23/16 05:15 RBC 4.57 Mil/cmm (3.80-5.10) 12/23/16 05:15 Hgb 13.7 gm/dL (12-16) 12/23/16 05:15 Hct 40.3 % (41.0-60) L 12/23/16 05:15 MCV 88.2 fl (81-100) 12/23/16 05:15 MCH 30.1 pg (27.0-31.0) 12/23/16 05:15 MCHC Differential 34.1 pg (28.0-36.0) 12/23/16 05:15 RDW 13.4 % (11.5-20.0) 12/23/16 05:15 Plt Count 190 Th/cmm (150-400) 12/23/16 05:15 MPV 8.2 fl 12/23/16 05:15 Neutrophils % 56.6 % (40.0-80.0) 12/23/16 05:15 Lymphocytes % 30.5 % (20.0-50.0) 12/23/16 05:15 Monocytes % 10.0 % (2.0-10.0) 12/23/16 05:15 Eosinophils % 2.3 % (0.0-5.0) 12/23/16 05:15 Basophils % 0.6 % (0.0-2.0) 12/23/16 05:15 Sodium 136 mEq/L (136-145) 12/23/16 05:15 Potassium 3.5 mEq/L (3.5-5.1) 12/23/16 05:15 Chloride 103 mEq/L (98-107) 12/23/16 05:15 Carbon Dioxide 26.8 mEq/L (21.0-31.0) 12/23/16 05:15 Anion Gap 9.7 (7.0-16.0) 12/23/16 05:15 BUN 13 mg/dL (7-25) 12/23/16 05:15 Creatinine 0.5 mg/dL (0.6-1.2) L 12/23/16 05:15 Est GFR ( Amer) > 60.0 ml/min (>90) 12/23/16 05:15 Est GFR (Non-Af Amer) > 60.0 ml/min 12/23/16 05:15 BUN/Creatinine Ratio 26.0 12/23/16 05:15 Glucose 138 mg/dL (70-105) H 12/23/16 05:15 Calcium 8.6 mg/dL (8.6-10.3) 12/23/16 05:15 Total Bilirubin 0.3 mg/dL (0.3-1.0) 12/23/16 05:15 AST 12 U/L (13-39) L 12/23/16 05:15 ALT 12 U/L (7-52) 12/23/16 05:15 Alkaline Phosphatase 59 U/L (34-104) 12/23/16 05:15 Total Protein 6.6 gm/dL (6.0-8.3) 12/23/16 05:15 Albumin 3.5 gm/dL (3.7-5.3) L 12/23/16 05:15 Globulin 3.1 gm/dL 12/23/16 05:15 Albumin/Globulin Ratio 1.1 (1.0-1.8) 12/23/16 05:15 Laboratory Results - last 24 hr 12/23/16 12/23/16 05:15 05:15 WBC 9.7 RBC 4.57 Hgb 13.7 Hct 40.3 L MCV 88.2 MCH 30.1 MCHC Differential 34.1 RDW 13.4 Plt Count 190 MPV 8.2 Neutrophils % 56.6 Lymphocytes % 30.5 Monocytes % 10.0 Eosinophils % 2.3 Basophils % 0.6 Sodium 136 Potassium 3.5 Chloride 103 Carbon Dioxide 26.8 Anion Gap 9.7 BUN 13 Creatinine 0.5 L Est GFR ( Amer) > 60.0 Est GFR (Non-Af Amer) > 60.0 BUN/Creatinine Ratio 26.0 Glucose 138 H Calcium 8.6 Total Bilirubin 0.3 AST 12 L ALT 12 Alkaline Phosphatase 59 Total Protein 6.6 Albumin 3.5 L Globulin 3.1 Albumin/Globulin Ratio 1.1
--- NOTE | 2016-12-25 20:49 | Discharge Summary ---
DATE OF DISCHARGE: 12/23/2016 The patient is admitted for left perianal abscess and hemorrhoidectomy 6 months ago, and the patient was seen by the ER doctor, who felt that the patient needs repeat surgery, and the patient was admitted and the patient ____ physician reason, the patient was transferred out to contracted facility. FINAL DIAGNOSIS: Perianal pain, left groin pain, status post hemorrhoidectomy in the past, and perianal abscess. The patient at the time of the transfer was stable. JOB# [id number]
== END 2016-12-23 19:44 | DRG 254 ==
LOC: ER 21:59 → MSI 12-23 01:50
PROVIDERS: ADMIT Internal Medicine; ATTEND Internal Medicine
DX: K61.2 Anorectal abscess (principal); I10 Essential (primary) hypertension; E87.6 Hypokalemia; F17.210 Nicotine dependence, cigarettes, uncomplicated; E11.9 Type 2 diabetes mellitus without complications; E78.5 Hyperlipidemia, unspecified; Z88.0 Allergy status to penicillin; Z82.49 Family history of ischemic heart disease and other diseases of the circulatory system; Z83.3 Family history of diabetes mellitus; Z79.899 Other long term (current) drug therapy
CPT/HCPCS: 36415-UA; 80053-TC; 85025-TC; J2270